=== PATIENT | male | born 1950 | race Two or more races ===

== ENCOUNTER 2024-07-21 09:31 | Inpatient (IN) | payer MEDICARE, MEDICAID, SELFPAY ==
[2024-07-21] VITALS (11 sets, daily range): BP systolic 137–175; BP diastolic 67–103; PULSE 64–106; RESP 14–31; TEMP 36.6–37.6; O2SAT 92–99; BMI 26.8
--- NOTE | 2024-07-21 09:51 | XR_ITS ---
Examination: PA lateral chest 2 views Technique: Upright PA lateral chest 2 views Exam date and time: July 21, 2024 10:17 AM Comparison June 27, 2017 Indications: Coughing beginning 3 days ago. Findings: Mild to moderate hyperexpansion No lobar pneumonia Accentuation basilar bronchovascular markings Moderate osteopenia Impression: COPD Basilar bronchitis pattern No lobar pneumonia
--- NOTE | 2024-07-21 09:51 | PD.EDRME ---
Rapid Medical Screening Exam RME Arrival date/time: 07/21/24 09:31 74-year-old male presents to the emergency department today with complaint of a 2-week history of weakness, cough, congestion, body aches, decreased urination Chief Complaint: Urogenital-Male Vital signs: Vital Signs Temperature 99.7 F 07/21/24 09:40 Pulse Rate 64 07/21/24 09:40 Respiratory Rate 18 07/21/24 09:40 Blood Pressure 137/81 H 07/21/24 09:40 Pulse Oximetry (%) 97 07/21/24 09:40 Oxygen Delivery Method Room Air 07/21/24 09:40
[2024-07-21 10:43] LABS: Lactate (Lactic Acid) 0.9 mMol/L (0.4-2.0)
[2024-07-21 10:56] LABS: Basophils # (Auto) 0.1 Thou/mm3 (0.0-0.2); Basophils % (Auto) 1 % (0-2.5); Eosinophils # (Auto) 0.1 Thou/mm3 (0.0-0.5); Eosinophils % (Auto) 1 % (0-10); Hematocrit 35.6 % (41.0-53.0); Hemoglobin 12.1 g/dL (13.5-16.0); Immature Granulocytes % (Auto) 1 % (0-0); Lymphocytes # (Auto) 1.3 Thou/mm3 (1.0-4.8); Lymphocytes % (Auto) 10 % (10-50); Mean Corpuscular Hemoglobin 25.6 pg (25.0-35.0); Mean Corpuscular Volume 75 fL (80-100); Monocytes # (Auto) 1.4 Thou/mm3 (0.0-0.8); Monocytes % (Auto) 12 % (0-12); Neutrophils # (Auto) 9.3 Thou/mm3 (1.8-7.7); Neutrophils % (Auto) 76 % (37-80); Nucleated Red Blood Cell % 0 /100 WBC (0); Platelet Count 300 Thou/mm3 (140-440); Red Blood Count 4.73 Miln/mm3 (4.50-5.90); White Blood Count 12.2 Thou/mm3 (3.8-10.6)
[2024-07-21 11:10] LABS: Alanine Aminotransferase 47 U/L (10-49); Albumin, Serum 4.2 gm/dL (3.4-4.8); Albumin/Globulin Ratio 1.5 (1.2-2.2); Alkaline Phosphatase 60 U/L (46-116); Anion Gap 5 (7-16); Aspartate Amino Transferase 37 U/L (0-34); BUN/Creatinine Ratio 11 Ratio (12-20); Blood Urea Nitrogen 11 mg/dL (9-23); Calcium 8.9 mg/dL (8.3-10.6); Calcium (Corrected) 8.9 mg/dL (8.5-10.1); Carbon Dioxide 25.8 mMol/L (20.0-31.0); Chloride 90 mMol/L (98-107); Estimated Creatinine Clearance 60.6 mL/min (>60); Globulin 2.8 gm/dL (2.3-3.5); Glucose 128 mg/dL (74-106); Osmolality,Calculated 245 (275-295); Potassium 4.6 mMol/L (3.4-5.1); Procalcitonin 0.12 ng/ml (0.0-0.49); Sodium 121 mMol/L (136-145); Troponin I < 0.020 ng/mL (0.0-0.045); eGFR > 60 See Note
[2024-07-21 11:10] LABS: Collection Type, Urine Clean Catch; Squamous Epithelial Cell,Urine 0 /hpf (0-5)
--- NOTE | 2024-07-21 11:20 | PD.EDURI ---
Upper Respiratory Inf. RME/HPI General Chief Complaint: Urogenital-Male Stated Complaint: cough, sob, trouble urinating x 2weeks Time Seen by Provider: 07/21/24 10:51 Arrival date/time: 07/21/24 09:31 RME / HPI RME / HPI Narrative: 07/21/24 09:31 74-year-old male presents to the emergency department today with complaint of a 2-week history of weakness, cough, congestion, body aches, decreased urination DR. NEGRO MAIN ED EVALUATION: 74 year old male with past medical history significant for asthma presents to the Emergency Department with complaints of a productive cough, congestion, shortness of breath, wheezing, and chest pain from coughing. Symptoms are moderate. Patient denies any fevers, chills, abdominal pain, or any other symptoms at this time. 1633: Patient states he does have a little dysuria. Denies any nausea. Related Data Home Medications ?Medication ?Instructions ?Recorded ?Confirmed benazepril 10 mg tablet 10 mg PO DAILY High Blood Pressure 07/27/22 04/21/23 metformin 1,000 mg tablet,extended 1,000 mg PO QDAY 07/27/22 04/21/23 release 24hr (osmotic) omeprazole 40 mg capsule,delayed 40 mg PO QDAY 07/27/22 04/21/23 release budesonide-formoterol HFA 160 1 puff inhalation BID 04/21/23 04/21/23 mcg-4.5 mcg/actuation aerosol inhaler (Symbicort) Previous Rx's ?Medication ?Instructions ?Recorded acetaminophen 500 mg tablet 500 mg PO Q6HR PRN PAIN #30 tabs 06/27/17 (Tylenol Extra Strength) Allergies Allergy/AdvReac Type Severity Reaction Status Date / Time No Known Allergies Allergy Verified 04/21/23 11:03 Review of Systems Review of Systems Systems Reviewed: All systems reviewed, normal except as documented Narrative Review of Systems: GEN: No fever, no chills, no weight loss EYES: No discharge, no visual changes, no pain HEENT: No ear pain, no congestion, no sore throat PULM: + shortness of breath and wheezing, + productive cough, + congestion CV: + chest pain, no dyspnea on exertion, no palpitations GI: No nausea, no vomiting, no diarrhea, no pain, no constipation : No frequency, no urgency and no dysuria MUSC/SKEL: No joint pain, no back pain SKIN: No rash PSYCH: No hallucinations, no depression HEME/LYMPH: No easy bleeding or bruising tendencies NEURO: No weakness, no headache Past Medical History Past Medical History NEUROLOGIC: Negative Neurological Disorders or Seizures CARDIAC: Positive Cardiac Disorders, Hypertension and Varicose Veins; Negative Congestive Heart Failure RESPIRATORY: Positive Asthma, Bronchitis and Pneumonia; Negative Chronic Obstructive Pulmonary Disease (COPD) GASTROINTESTINAL: Positive Gastrointestinal Disorders, Gastroesophageal Reflux Disease and Obesity GENITOURINARY: Negative Genitourinary Disorders or Renal Disease MUSCULOSKELETAL: Positive Fractures (post fall left ribs); Negative Musculoskeletal Disorders ENT: Positive Cataracts (cari) ENDOCRINE: Positive Endocrine Disorders and Diabetes Mellitus Type 2; Negative Diabetes Mellitus Type 1 HEMATOLOGIC: Negative Blood Disorders PSYCHO/SOCIAL: Positive Depression (no meds) and Anxiety OTHER HISTORY: Positive Hospitalization (asthma), Chicken Pox, Measles and Mumps; Negative Autoimmune Disease, Shingles, Blood Transfusions, Blood Transfusion Reaction, Anesthesia Reactions, Organ Transplant, MRSA or Cancer Family History FAMILY HISTORY: Positive Family Cardiac Disorders and Family Surgery; Negative Family Psychiatric Problems, Family Respiratory Disorders, Family Gastrointestinal Problems, Family Cancer or Family Anesthesia Reaction Surgical History SURGICAL: Positive Abdominal Surgery; Negative Cardiac Surgery, Endocrine Surgery, Ear Surgery, Nephrectomy, Joint Replacement, Neurologic Surgery, Mastectomy or Organ Transplant Social History SMOKING STATUS: Former smoker ED Exam Narrative Physical exam: Physical Exam: General: The vital signs were reviewed. Congested cough the patient is non-toxic, in no apparent distress and appears healthy with a patent airway, no respiratory distress and has no apparent circulatory problems. Head & Scalp: Normocephalic, atraumatic. Face: Appears normal and is without lesions, deformity. Ears: Left external pinna appears normal. Right external pinna appears normal. Eyes: The sclera is anicteric. No obvious photophobia. The Left and Right Orbit/Lid/Conjunctiva appears normal without swelling, discoloration or injection. Nose: The nose is without deformity, discharge or tenderness; Throat: Appears normal. The mucous membranes are pink and moist without exudates, redness or mass seen. The tongue appears normal. Neck: The neck is supple and no apparent mass or adenopathy. Chest: The chest wall is normal in size and symmetry and has no chest wall tenderness or crepitus. The patient displays normal ventilator effort without retractions, accessory muscle use and has diffuse wheezes in all lung comer. Cardiovascular: Regular rate and rhythm; No murmurs, rubs, or gallops; Gastrointestinal: The abdomen appears normal. No obvious hernias or mass. The abdomen is soft and benign, non-distended, with no pain, no guarding and no rebound tenderness. Bowel sounds are present and normal sounding. No CVA tenderness. Genitourinary: Back/Spine: Normal inspection Extremities/Musculoskeletal/lymphatic: The bilateral upper and lower extremities are warm. There is no evidence of arterial insufficiency. There is no evidence of venous insufficiency/edema. The patient spontaneously moves bilateral upper and lower extremities with no pain and no limitation of movement. There is no apparent, injury or trauma. Skin: The skin is warm, dry and intact. No rashes. No petechia. No purpura. No abnormal bruising. The color is appropriate with no cyanosis. Mental status/Psychiatric: Mental status is appropriate for age. The patient has no apparent delusions, visual hallucinations, no apparent audible hallucinations. The patient has no apparent suicidal thoughts/ideation and no apparent homicidal thoughts/ideation. Neurological: The patient is awake, alert, interactive, cordial, cooperative and is oriented to name and situation. The patient follows commands and answers historical question with no impairment. There is no visual disturbance apparent. The pupils are equal and reactive bilaterally with normal eye movements and no diplopia The bilateral upper and lower extremities have normal strength, normal range of motion and normal functioning. The gait, station and balance appear to be baseline with no acute change Course Quality Measures none Orders Category Date Time Status Bedside COVID-19 Antigen Test NOW Care 07/21/24 09:51 Active Bedside Influenza A&B Antigen Test NOW Care 07/21/24 09:51 Completed EKG (ED ONLY) *Do not use* NOW Care 07/21/24 09:51 Completed EKG (ED Only) Stat Exams 07/21/24 09:51 Ordered XR chest 2V Stat Exams 07/21/24 09:51 Completed Blood Culture (Lab) Stat Lab 07/21/24 10:29 Received CBC Stat Lab 07/21/24 10:34 Completed Comprehensive Metabolic Panel Stat Lab 07/21/24 10:34 Completed Lactate (Lactic Acid) Stat Lab 07/21/24 10:34 Completed Osmolality, Serum* Stat Lab 07/21/24 11:25 Ordered Osmolality, Urine* Stat Lab 07/21/24 11:25 Ordered Procalcitonin Stat Lab 07/21/24 10:34 Completed Sodium,Urine Random Stat Lab 07/21/24 11:06 Completed T4 (Thyroxine) Stat Lab 07/21/24 10:55 Completed Thyroid Stimulating Hormone Stat Lab 07/21/24 10:55 Completed Troponin I Stat Lab 07/21/24 10:34 Completed Urinalysis Stat Lab 07/21/24 11:06 Completed Urine Culture Stat Lab 07/21/24 11:06 Received ALBUTEROL RT 0.5ml [Proventil Rt 0.5ml] Med 07/21/24 11:20 Discontinued 10 mg INH X1 ONE Ipratropium Tyler Rt Naomi [Atrovent Rt Naomi] Med 07/21/24 11:20 Discontinued 1 mg INH X1 ONE MethylPREDNISolone.* [SoluMEDROL Inj] Med 07/21/24 11:20 Discontinued 125 mg IVP X1 ONE Sodium Chloride Rt Naomi 0.9% [NS Rt Naomi 0.9%] Med 07/21/24 11:20 Active 3 ml INH PRN PRN Reevaluation(s) Reevaluation #1: Patient states he does have a little dysuria. Denies any nausea. Time: 16:33 Vital Signs Vital signs: Vital Signs Temperature 99.7 F 07/21/24 09:40 Pulse Rate 64 07/21/24 09:40 Respiratory Rate 18 07/21/24 09:40 Blood Pressure 137/81 H 07/21/24 09:40 Pulse Oximetry (%) 97 07/21/24 09:40 Oxygen Delivery Method Room Air 07/21/24 09:40 Upper Respiratory Infection MDM Narrative MDM Narrative:: Patient presents with shortness of breath worse in the last 2 weeks with cough and congestion starting 2 weeks ago probably some viral illness and now has wheezing in all lung comer and will initiate continuous neb treatments. He has had asthma problem in the past requiring nebulizer treatments chest x-ray as read by myself has no obvious pneumonia effusion normal heart size. Diaphragms are flattened on the lateral view. Laboratory studies show a white count of 12.2 hemoglobin of 12.1 sodium is low at 121 etiology of this is unclear. Chloride 90 potassium 4.6 CO2 is 25.8. BUN 11 creatinine 1.0 glucose slightly elevated 128. AST 37 ALT 47. Procalcitonin is negative. UA is pending at this time. I will add additional labs to workup the hyponatremia. After breathing treatment patient's lungs are much improved patient sodium is 121 he is wobbly and he also has a obvious significant UTI. So organ to give him some fluids given some Rocephin and hospitalist was called they will come down and will admit the patient. When back in the room discussed this with the patient and they are okay with being admitted hospitalist team arrived and was taking history and informing that patient drinks significant alcohol daily which may be contributing to his hyponatremia ILexie, am scribing for and in the presence of Dr. Negro. Patient data External records reviewed:: [facility] previous records (Reviewed Opthalmology note by Dr. Gamble, dated 04/24/23.) Clinical information provided by:: patient and spouse Social determinants that could affect healthcare access:: none Patient has the following chronic illnesses:: Asthma How is presenting disease/condition affected by chronic disease/condition?: exacerbated by Evaluation data The following diagnostics were reviewed and interpreted by me:: lab results, radiology exam(s) and EKG tracing(s) (EKG#1: EKG at 1001 hours. Interpreted by me: sinus tachycardia, rate 100, no STEMI) Lab and/or radiology exams considered but not ordered:: none Interpretation Summary: See above under MDM narrative. RADIOLOGY Procedure(s): XR chest 2V Accession Number(s): [id number] cc: Aleah Hester; Shaka (CHEMICALS FERMENTATION OPERATOR),Marquez LOPEZ; Mathew Coley MD~ Examination: PA lateral chest 2 views Technique: Upright PA lateral chest 2 views Exam date and time: July 21, 2024 10:17 AM Comparison June 27, 2017 Indications: Coughing beginning 3 days ago. Findings: Mild to moderate hyperexpansion No lobar pneumonia Accentuation basilar bronchovascular markings Moderate osteopenia Impression: COPD Basilar bronchitis pattern No lobar pneumonia Dictated By: Mathew Coley MD Medications / Prescriptions Medications or Prescriptions considered but not ordered:: none Medication administrations:: Medication Administration History Ceftriaxone Sodium/Dextrose (Rocephin/D5w 1gm Iv Premix) 50 mls @ 100 mls/hr IV X1 ONE Stop: 07/21/24 17:03 Sodium Chloride (Ns) 1,000 mls @ 999 mls/hr IV .Q1H1M ONE Stop: 07/21/24 17:35 Sodium Chloride (Sodium Chloride Rt Naomi 0.9% 3 Ml Nebu) 3 ml INH PRN PRN PRN Reason: SOLN Stop: 08/20/24 11:19 Discontinued Medications Albuterol (Albuterol Rt 2.5 Mg/0.5 Ml Nebu) 10 mg INH X1 ONE Stop: 07/21/24 11:21 Last Admin: 07/21/24 11:54 Dose: 10 mg Documented By: SHANNAN Ipratropium Tyler (Ipratropium Rt 0.5 Mg/ 2.5 Ml Nebu) 1 mg INH X1 ONE Stop: 07/21/24 11:21 Last Admin: 07/21/24 11:54 Dose: 1 mg Documented By: SHANNAN Methylprednisolone Sodium Succinate (Methylprednisolone Sod Succ 62.5 Mg/Ml 2ml Vial) 125 mg IVP X1 ONE Stop: 07/21/24 11:21 Last Admin: 07/21/24 11:44 Dose: 125 mg Documented By: SHANNAN(2) see above Consultations Consultation(s) initiated? (list below): No Diagnosis Upper Respiratory Differential Diagnosis: upper respiratory infection, viral infection, influenza and other (asthma exacerbation) Most likely diagnosis given after review of the tests above:: As noted below. Admission Indicated Admission indicated?: not indicated Admission Request Was there a request for admission?: No Disposition Plan Disposition Plan: Discharge Discharge Attestation Discharge Attestation: The patient and all family members were given an opportunity to ask questions and understood the discharge instructions. Discharge instructions specifically effects, indications for sooner follow up or return to the emergency department, and the expected course of current diagnosis. Patient condition: Stable Discharge Plan Plan Patient Disposition: Admit Acute Care w/in Hospital Disposition Comment: Hospitalist admit Prescriptions/Referrals Prescriptions/Med Rec: No Action acetaminophen [Tylenol Extra Strength] 500 MG tablet 500 mg PO Q6HR PRN (Reason: PAIN) Qty: 30 0RF Hold Instructions: Resume on 08/02/22. omeprazole 40 mg Capsule,Delayed Release(Dr/Ec) 40 mg PO QDAY benazepril 10 mg Tablet 10 mg PO DAILY metformin 1,000 mg Tablet Extended Release 24 Hr 1,000 mg PO QDAY budesonide-formoterol [Symbicort] 160-4.5 mcg/actuation Hfa Aerosol Inhaler 1 puff INHALATION BID Referrals: Aleah Hester PA-C [Primary Care Provider] - In 1 week Problem List Clinical Impression: Dyspnea, Acute hyponatremia, COPD exacerbation, Weakness, Alcohol abuse Patient/Caregiver Discharge Instructions Print Language: Kinyarwanda Stand Alone Forms: [employer] Award Info., Patient Portal Info Letter
[2024-07-21] MEDS: MethylPREDNISolone SOD SUCC 62.5 MG/ML 2ML VIAL 125 MG IVP (11:44)
[2024-07-21] MEDS: IPRATROPIUM RT 0.5 MG/ 2.5 ML NEBU 1 MG INH (11:54)
[2024-07-21] MEDS: ALBUTEROL RT 2.5 MG/0.5 ML NEBU 10 MG INH (11:54)
[2024-07-21 11:57] LABS: Bilirubin,Urine Negative (Negative); Blood,Urine Trace (Negative); Clarity,Urine Turbid (Clear/Hazy); Color,Urine Yellow (Lt Yel-Yel); Glucose, Urine Negative (Negative); Ketones,Urine 1+ (Negative); Leukocyte Esterase,Urine Positive (Negative); Nitrite,Urine Negative (Negative); Protein,Urine 1+ (Neg - Trace); RBC,Urine 19 /hpf (0-3); Specific Gravity,Urine 1.015 (1.001-1.035); Transitional Epi Cells,Urine 2 /hpf (0-5); WBC,Urine 538 /hpf (0-5)
--- NOTE | 2024-07-21 12:15 | PC.NURSE ---
Respiratory therapist at bedside administering breathing treatment.
[2024-07-21 12:28] LABS: T4 (Thyroxine) 7.9 mcg/dL (4.5-10.9)
[2024-07-21 12:29] LABS: Thyroid Stimulating Hormone 0.24 uIU/mL (0.55-4.78)
--- NOTE | 2024-07-21 12:35 | PC.NURSE ---
Patient presents to ED with c/o cough and SOB, weakness to lower extremities and burning pain with urination, slow to start and dribbling upon urination. Patient is alert and oriented, ambulatory but requires assistance due to weakness. Patient spouse is at bedside and assisting patient. Patient and spouse updated with plan of care, instructed utilization engineer light use.
[2024-07-21 15:26] LABS: Sodium,Urine Random 31.7 mMol/L (20.0-110.0)
[2024-07-21] MEDS: cefTRIAXone/D5w 1gm IV premix 50 ML IV (17:31)
[2024-07-21] MEDS: SODIUM CHLORIDE 0.9% 1000 ML 1,000 ML 999 ML IV (17:32)
--- NOTE | 2024-07-21 17:48 | ESHP_ITS ---
<Statement entered by Dylan Diaz MD - 07/21/24 17:52> This patient is a 74-year-old male with past medical history of alcohol use disorder drinks treatments of vodka every day, history of diabetes managing with diet, hypertension and asthma with history of smoking presented the ED with shortness of breath productive cough and received breathing treatments in the ED which improved his wheezing and cough. Patient was found to have dizziness on ambulation and was having resting tremors. On social history he reported that he drinks vodka every day. Patient's was also present at bedside. He also reported to have dysuria from last 2 weeks along with difficulty breathing. Labs were significant for hyponatremia sodium of 122 since 10 AM and urine analysis showed pyuria, leukocyte esterase positive. Patient is admitted for symptomatic hyponatremia most likely due to beer potomania, alcohol use disorder and UTI. Will start with CIWA protocol and if he becomes severely agitated and withdrawing night team can add Librium. Will start with Rocephin for UTI. Currently awaiting sodium levels if declining will start with hypertonic saline at 35 cc/h and fluid restrict him. Strict ANUPAM's and started sliding scale for type 2 diabetes most likely. Refer to social science instructor for alcohol cessation. Daily labs. Med reconciliation pending. All labs and orders were reviewed. I saw and examined the patient, and I agree with current management stated by Dr Juana MD,PGY1. Plan of care was discussed with the attending physician and resident physician. Disclaimer: Despite multiple revisions, due to the dictation software being used, the document bellow may not be free of grammatical errors including phonetic/typographic errors. However, this does not deter from our commitment to providing health care in the patient's best interest in mind. Dr. Joe MD, PGY 2 Documentation for date of: 07/21/24 HPI History of Present Illness Chief complaint: SOB, weakness History of present illness: 74 y/o M with PMHx significant for asthma, diabetes, hypertension presents to the ED from home with chief complaint of progressive shortness of breath and generalized weakness x 2 weeks. Patient was in his usual state of health until 2 weeks ago when he developed progressive shortness of breath not relieved with at home inhaler, generalized weakness, dysuria. Patient denies fevers, chills, chest pain, nausea, vomiting. Patient has no known sick contacts. ED COURSE: Lab significant for: WBC 12.2, sodium 121, osmolality 245, lactic acid 0.9, pro 0.12. UA indicating infection: Plus leukocyte esterase, 19 RBCs, 538 WBCs. Urine sodium 31.7. Imaging significant for: Chest x-ray unremarkable. Patient received 125 mg IV Solu-Medrol, 1 breathing treatment, Rocephin, 1 L bolus normal saline in the ED. At time of exam patient denied any shortness of breath. Patient afebrile, satting well on room air. PMH: HTN, DM, asthma PSH: Umbilical hernia repair SH: Used to smoke 1-2 cigarettes daily, quit 15 years ago. Denies illicit drug use. Endorses drinking 3 pints of vodka daily, last drink last night. Allergies:?NKDA Medications: Omeprazole, metformin, unknown hypertension medication Review of Systems Review of Systems Systems Reviewed: All systems reviewed, normal except as documented Past Medical History Past Medical History Comments PMH COMMENT: PMH: HTN, DM, asthma PSH: Umbilical hernia repair SH: Used to smoke 1-2 cigarettes daily, quit 15 years ago. Denies illicit drug use. Endorses drinking 3 pints of vodka daily, last drink last night. Allergies:?NKDA Medications: Omeprazole, metformin, unknown hypertension medication Exam Vital Signs Temp Pulse Resp BP Pulse Ox O2 Del Method 99.3 F 84 19 155/81 H 98 Room Air 07/21/24 16:13 07/21/24 16:13 07/21/24 16:13 07/21/24 16:13 07/21/24 16:13 07/21/24 16:13 Narrative Exam PE: Gen: Well-developed and well-nourished. HEENT: NCAT, PERRLA, EOMI, MMM, anicteric conjunctivae. CVS: normal S1 and S2. RRR. No M/R/G. Resp: Diffuse mild wheezing in all lung comer. Abd: soft, non-tender, non-distended. MSK: Good ROM in BUE & BLE. No edema or rash. Neuro: CN II-XII grossly intact. Strength 5/5 in BUE & BLE. Alert and oriented x3. Tremors. Psych: appropriate mood and affect. Results: Labs 07/21/24 10:34 07/21/24 17:49 Labs: Short CBC 07/21/24 Range/Units 10:34 WBC 12.2 H (3.8-10.6) Thou/mm3 Hgb 12.1 L (13.5-16.0) g/dL Hct 35.6 L (41.0-53.0) % Plt Count 300 (140-440) Thou/mm3 BMP 07/21/24 10:34 Sodium 121 L Potassium 4.6 Chloride 90 L Carbon Dioxide 25.8 BUN 11 Creatinine 1.0 Glucose 128 H Calcium 8.9 Cardiac Enzymes 07/21/24 Range/Units 10:34 Troponin I < 0.020 (0.0-0.045) ng/mL Liver Function 07/21/24 Range/Units 10:34 Total Bilirubin 1.0 (0.3-1.2) mg/dL AST 37 H (0-34) U/L ALT 47 (10-49) U/L Alkaline Phosphatase 60 (46-116) U/L Albumin 4.2 (3.4-4.8) gm/dL Urine 07/21/24 Range/Units 11:06 Urine Color Yellow (Lt Yel-Yel) Urine Clarity Turbid A (Clear/Hazy) Urine pH 7.0 (5.0-7.0) Ur Specific [place] 1.015 (1.001-1.035) Urine Protein 1+ A (Neg - Trace) Urine Glucose (UA) Negative (Negative) Quality Measures Quality Measures VTE prophylaxis Advance care planning discussed with:: patient and spouse Medications Home Medications and Allergies Home Medications ?Medication ?Instructions ?Recorded ?Confirmed ?Type benazepril 10 mg tablet 10 mg PO DAILY High Blood Pressure 07/27/22 04/21/23 History metformin 1,000 mg tablet,extended 1,000 mg PO QDAY 07/27/22 04/21/23 History release 24hr (osmotic) omeprazole 40 mg capsule,delayed 40 mg PO QDAY 07/27/22 04/21/23 History release budesonide-formoterol HFA 160 1 puff inhalation BID 04/21/23 04/21/23 History mcg-4.5 mcg/actuation aerosol inhaler (Symbicort) Allergies Allergy/AdvReac Type Severity Reaction Status Date / Time No Known Allergies Allergy Verified 10/27/23 11:03 Visit Medications Acetaminophen (Acetaminophen 325 Mg Tablet) 650 mg PO Q6H PRN PRN Reason: Fever >100.4 or pain Stop: 08/20/24 17:23 Albuterol/Ipratropium (Albuterol/Ipratropium (Duoneb) Rt Naomi 3 Ml Nebu) 3 ml INH Q2HR PRN PRN Reason: SHORTNESS OF BREATH OR WHEEZE Stop: 08/20/24 17:23 Dextrose (Dextrose 50%-Water Inj 50 Ml Syringe) 25 ml IV Q15MIN PRN PRN Reason: BG 50-70 responsive npo pt Stop: 08/20/24 17:44 Dextrose (Dextrose 50%-Water Inj 50 Ml Syringe) 50 ml IV Q15MIN PRN PRN Reason: BG <50 OR BG <70 & pt unresponsive Stop: 08/20/24 17:44 Enoxaparin Sodium (Enoxaparin Sod Inj 40 Mg/0.4 Ml Syringe) 40 mg SC QDAY [facility] Stop: 08/05/24 08:59 Folic Acid (Folic Acid 1 Mg Tablet) 1 mg PO BID [facility] Stop: 07/26/24 20:59 Glucagon (Glucagon Inj 1 Mg Vial) 1 mg IM Q15MIN PRN PRN Reason: BG <70, and no IV access Ceftriaxone Sodium/Dextrose (Rocephin/D5w 1gm Iv Premix) 50 mls @ 100 mls/hr IV QDAY@1400 [facility] Stop: 07/29/24 08:59 Insulin Human Lispro (Insulin Lispro (Admelog) 1 Unit/0.01 Ml Unit) 0 unit SC [facility]; Protocol Stop: 08/21/24 07:29 Lorazepam (Lorazepam 0.5 Mg Tablet) 0.5 mg PO Q4HR PRN PRN Reason: CIWA Score 2-6 Stop: 07/26/24 17:23 Lorazepam (Lorazepam 0.5 Mg Tablet) 1 mg PO Q4HR PRN PRN Reason: CIWA SCORE 7-11 Stop: 07/26/24 17:23 Lorazepam (Lorazepam 0.5 Mg Tablet) 2 mg PO Q4HR PRN PRN Reason: CIWA SCORE 12-15 Stop: 07/26/24 17:23 Lorazepam (Lorazepam 2 Mg/Ml Vial) 1 mg IV X1 PRN PRN Reason: Breakthrough Agitation Magnesium Hydroxide (Milk Of Magnesia Susp 30 Ml Udc) 30 ml PO QDAY PRN; Protocol PRN Reason: CONSTIPATION Stop: 08/20/24 17:23 Ondansetron HCl (Ondansetron Inj 2 Mg/Ml Inj 2 Ml) 4 mg IV Q6H PRN; Protocol PRN Reason: NAUSEA OR VOMITING Stop: 08/20/24 17:23 Sennosides (Senna Tablet) 1 tab PO QDAY PRN; Protocol PRN Reason: constipation Stop: 08/20/24 17:23 Sodium Chloride (Sodium Chloride Rt Naomi 0.9% 3 Ml Nebu) 3 ml INH PRN PRN PRN Reason: SOLN Stop: 08/20/24 11:19 Thiamine HCl (Thiamine 100 Mg Tablet) 100 mg PO BID [facility] Stop: 07/26/24 20:59 Discontinued Medications Albuterol (Albuterol Rt 2.5 Mg/0.5 Ml Nebu) 10 mg INH X1 ONE Stop: 07/21/24 11:21 Last Admin: 07/21/24 11:54 Dose: 10 mg Ceftriaxone Sodium/Dextrose (Rocephin/D5w 1gm Iv Premix) 50 mls @ 100 mls/hr IV X1 ONE Stop: 07/21/24 17:03 Last Admin: 07/21/24 17:31 Dose: 100 mls/hr Sodium Chloride (Ns) 1,000 mls @ 999 mls/hr IV .Q1H1M ONE Stop: 07/21/24 17:35 Last Admin: 07/21/24 17:32 Dose: 999 mls/hr Ipratropium [place] (Ipratropium Rt 0.5 Mg/ 2.5 Ml Nebu) 1 mg INH X1 ONE Stop: 07/21/24 11:21 Last Admin: 07/21/24 11:54 Dose: 1 mg Methylprednisolone Sodium Succinate (Methylprednisolone Sod Succ 62.5 Mg/Ml 2ml Vial) 125 mg IVP X1 ONE Stop: 07/21/24 11:21 Last Admin: 07/21/24 11:44 Dose: 125 mg Assessment & Plan Plan 74 y/o M with PMHx significant for asthma, diabetes, hypertension presents to the ED from home with chief complaint of progressive shortness of breath and generalized weakness x 2 weeks, admitted for symptomatic hyponatremia and UTI. #Hyponatremia, symptomatic The patient was found to be hyponatremic at 121 in the ED. Likely due to beer Potomania, patient endorses drinking 3 pints of vodka daily with poor food intake. Urine appears dilute. Urine sodium 31.7. Patient endorses weakness, dizziness on standing. Patient received 1 L bolus normal saline in the ED. -Telemetry -Sodium checks every 4 hours -Nephrology consulted, appreciate recommendations -Fluid restriction 1500 cc -Hypertonic saline 35 mL/h x 0.5 L, will hold if sodium is equal to or greater than 125 -Orthostatic vitals pending -Strict I's and O's #Alcohol withdrawal Patient reports drinking 3 pints of vodka daily. Last drink was night before admission. Entire exam patient has tremors. Patient endorses previous episodes of tremors and hallucinations when he stopped drinking, denies seizures. -Telemetry -[facility] protocol -Consider Librium #UTI, symptomatic Patient reports dysuria x 2 weeks. Patient denies fevers, chills during this time. UA showed positive leukocyte esterase, 538 WBCs. Patient leukocytosis 12.2. Patient afebrile, nonseptic. -Urine cultures pending -Rocephin 1 g IV daily (started 07/21) #Asthma exacerbation, improved Patient presented with chief complaint of shortness of breath, progressive x 2 weeks, not relieved without home inhaler. In ED patient received 125 mg IV Solu-Medrol, 1 breathing treatment. Patient reports significant improvement in symptoms, at time of exam patient satting well on room air, mild diffuse wheezings. At time of exam patient denies shortness of breath. Given patient's good clinical presentation at time of exam, declined to administer continued steroids. -DuoNebs as needed -Monitor O2 saturations #DM, [id number] Patient has history of diabetes, takes metformin outpatient. A1c 6.2% as of 01/11/2024. -Carb consistent diet -ISS -A1c pending #HTN, patient history Patient has history as stated. Takes a medication but unsure which one. Med rec's pending. -Consider resuming home med pending med rec's DVT prophylaxis: Lovenox GI prophylaxis: None Diet: Carb consistent, fluid restriction 1500 cc Lines: Peripheral IV Code status: Full code Plan of care discussed with senior resident Dr. Diaz PGY?[address] Grant. Gustavo Arias MD PGY-1 Attending Provider Attestation/Addendum I have examined the patient, reviewed labs and imaging findings, discussed the case with the resident(s), and reviewed entered orders. I agree with the plan of care as outlined in this note, with these additional summaries/recommendations: Patient is a 74-year-old male with a medical history of primary hypertension, GERD, diabetes mellitus type 2, COPD/asthma, normocytic anemia, and restless leg syndrome who presents to [facility] emergency department on 07/21/2024 with chief complaints of weakness, urinary symptoms, and generalized bodyaches. In the emergency department urinalysis is indicative of urinary tract infection and patient was found to have severe hyponatremia and thus hospitalist team was consulted for continuation of care. # Hypotonic hyponatremia Presented with sodium 121 and serum osmolality 245, urine sodium 31.7, TSH 0.24 Volume status: Euvolemic DDx: Medication induced versus extrarenal losses versus SIADH versus low solute intake versus CHF Workup: Obtain urine osmolality, trend sodium every 4-6 hours Plan: Sodium 121 at 1030 this morning. We will order stat repeat sodium. If sodium increases we will continue with just fluid restriction and close trending of sodium. If sodium stayed at 121 or below we will start hypertonic saline with close monitoring. #?Urinary tract infection Does endorse some lower urinary tract symptoms Urinalysis: Leukocyte esterase positive, RBC 19, WBC 538, bacteria none Urine and blood cultures ordered Plan: Start IV Rocephin. Follow-up culture results and repeat hematology panel in AM. #Alcohol withdrawal Plan: Drinks 3 points of hard liquor a day. Last drink 07/20. Start CIWA protocol #COPD Plan: Breathing treatments as needed # Diabetes mellitus type 2 Well controlled. Last A1C 01/11/24 6.2% Plan: Start sensitive insulin sliding scale # Primary hypertension Plan: We will resume home antihypertensives as tolerated. Dr. Grant
[2024-07-21 18:24] LABS: Sodium 122 mMol/L (136-145)
--- NOTE | 2024-07-21 19:27 | PC.NURSE ---
clarified 3% hypertonic order as sodium level sits at 122, per MD Cruz to start IVF.
[2024-07-21] MEDS: SODIUM CHLORIDE 3%(Hypertonic) 500 ML in PRE-MIXED 1 BAG 30 ML IV (19:47)
[2024-07-21] MEDS: LORazepam 0.5 MG TABLET 1 MG PO (19:53)
[2024-07-21] MEDS: FOLIC ACID 1 MG TABLET PO (20:22)
[2024-07-21] MEDS: THIAMINE 100 MG TABLET PO (20:22)
[2024-07-21 22:05] LABS: Sodium 125 mMol/L (136-145)
[2024-07-21] MEDS: LORazepam 0.5 MG TABLET 2 MG PO (23:05)
[2024-07-22] VITALS (14 sets, daily range): BP systolic 124–175; BP diastolic 72–98; PULSE 74–110; RESP 13–24; TEMP 36.4–37.4; O2SAT 95–99; BMI 28.5; BMI 28.6
--- NOTE | 2024-07-22 00:47 | PC.NURSE ---
Carmelina, daughter, contacted about admission questions. daughter states patient has history of drug abuse using methamphetamines on and off.
[2024-07-22 01:51] LABS: Sodium 127 mMol/L (136-145)
[2024-07-22] MEDS: DEXTROSE 5%-0.45% NS 1,000 ML 75 ML IV (02:23)
[2024-07-22 06:26] LABS: Basophils % (Auto) 0 % (0-2.5); Eosinophils % (Auto) 0 % (0-10); Hematocrit 36.8 % (41.0-53.0); Hemoglobin 12.1 g/dL (13.5-16.0); Immature Granulocytes % (Auto) 1 % (0-0); Immature Granulocytes Auto 0.07 Thou/mm3 (0.00-0.00); Lymphocytes # (Auto) 0.8 Thou/mm3 (1.0-4.8); Lymphocytes % (Auto) 8 % (10-50); Mean Corpuscular HGB Conc 32.9 g/dl (31.0-37.0); Mean Corpuscular Hemoglobin 25.3 pg (25.0-35.0); Mean Corpuscular Volume 77 fL (80-100); Monocytes # (Auto) 0.3 Thou/mm3 (0.0-0.8); Monocytes % (Auto) 3 % (0-12); Neutrophils # (Auto) 8.4 Thou/mm3 (1.8-7.7); Neutrophils % (Auto) 88 % (37-80); Nucleated Red Blood Cell % 0 /100 WBC (0); Platelet Count 305 Thou/mm3 (140-440); RDW Standard Deviation 41.7 fL (35.1-43.9); Red Blood Count 4.78 Miln/mm3 (4.50-5.90); White Blood Count 9.5 Thou/mm3 (3.8-10.6)
[2024-07-22 06:57] LABS: Alanine Aminotransferase 45 U/L (10-49); Albumin, Serum 4.1 gm/dL (3.4-4.8); Albumin/Globulin Ratio 1.2 (1.2-2.2); Alkaline Phosphatase 61 U/L (46-116); Anion Gap 9 (7-16); Aspartate Amino Transferase 32 U/L (0-34); BUN/Creatinine Ratio 15 Ratio (12-20); Bilirubin,Total 0.5 mg/dL (0.3-1.2); Blood Urea Nitrogen 12 mg/dL (9-23); Calcium 8.9 mg/dL (8.3-10.6); Calcium (Corrected) 8.9 mg/dL (8.5-10.1); Carbon Dioxide 23.4 mMol/L (20.0-31.0); Chloride 94 mMol/L (98-107); Creatinine (Component) 0.8 mg/dL (0.6-1.3); Estimated Creatinine Clearance 83.3 mL/min (>60); Globulin 3.3 gm/dL (2.3-3.5); Glucose 165 mg/dL (74-106); Magnesium 1.8 mg/dL (1.6-2.6); Osmolality,Calculated 257 (275-295); Phosphorous 2.8 mg/dL (2.4-5.1); Potassium 3.8 mMol/L (3.4-5.1); Sodium 126 mMol/L (136-145); Total Protein 7.4 gm/dL (5.7-8.2); eGFR > 60 See Note
[2024-07-22 07:09] LABS: Glucose Estimated Average 140 mg/dL (80-131); Hemoglobin A1C 6.5 % Hgb (4.8-6.0)
[2024-07-22] MEDS: INSULIN LISPRO (AdmeLOG) 1 UNIT/0.01 ML UNIT SC ×2 (07:48→12:10)
[2024-07-22] MEDS: ENOXAPARIN SOD INJ 40 MG/0.4 ML SYRINGE SC (08:18)
[2024-07-22] MEDS: THIAMINE 100 MG TABLET PO ×2 (08:18→20:46)
[2024-07-22] MEDS: FOLIC ACID 1 MG TABLET PO ×2 (08:18→20:46)
[2024-07-22] MEDS: cefTRIAXone/D5w 1gm IV premix 50 ML IV ×2 (08:18→14:40)
[2024-07-22] MEDS: LORazepam 0.5 MG TABLET 1 MG PO ×3 (08:19→23:32)
--- NOTE | 2024-07-22 09:26 | PD.NEPHCONS ---
History of Present Illness Data of Consult Requesting Physician: Dmitriy Grant MD Primary Care Provider: Aleah Hester PA-C Consult Narrative Reason for consult: Hyponatremia History of present illness: Mr. Tapia is a 74-year-old gentleman with past medical history significant for diabetes, hypertension, asthma, alcoholism presented to the emergency department with shortness of breath weakness which is going on for the last 2 weeks. Patient also was having dysuria with no fever or chills. Patient apparently drinks significant amount of vodka on a daily basis. In the emergency department-lab significant for: WBC 12.2, sodium 121, osmolality 245, creatinine normal lactic acid 0.9, pro 0.12. UA indicating infection: Plus leukocyte esterase, 19 RBCs, 538 WBCs. Urine sodium 31.7. Chest x-ray normal Patient received 125 mg IV Solu-Medrol, 1 breathing treatment, Rocephin, 1 L bolus normal saline in the ED. patient was moved to telemetry due to his asymptomatic hyponatremia from dizziness weakness decided to start him on 3% hypertonic saline with close monitoring of the serum sodium. Overnight his sodium went up to 127. night team started the patient on D5W. This morning his sodium is 126. Having breakfast. More alert and awake although still a little confusion noted and tremors probably from alcoholism. CIWA protocol was initiated. cc:: cc: Dmitriy Grant MD Review of Systems Review of Systems Narrative Review of Systems: Limited as patient seems to be still slightly confused and having tremors-suspect from alcoholism. Past Medical History Past Medical History NEUROLOGIC: Negative Neurological Disorders or Seizures CARDIAC: Positive Cardiac Disorders, Hypertension and Varicose Veins; Negative Congestive Heart Failure RESPIRATORY: Positive Asthma, Bronchitis and Pneumonia; Negative Chronic Obstructive Pulmonary Disease (COPD) GASTROINTESTINAL: Positive Gastrointestinal Disorders, Gastroesophageal Reflux Disease and Obesity GENITOURINARY: Negative Genitourinary Disorders or Renal Disease MUSCULOSKELETAL: Positive Fractures; Negative Musculoskeletal Disorders ENT: Positive Cataracts ENDOCRINE: Positive Endocrine Disorders and Diabetes Mellitus Type 2; Negative Diabetes Mellitus Type 1 HEMATOLOGIC: Negative Blood Disorders PSYCHO/SOCIAL: Positive Depression and Anxiety OTHER HISTORY: Positive Hospitalization, Chicken Pox, Measles and Mumps; Negative Autoimmune Disease, Shingles, Blood Transfusions, Blood Transfusion Reaction, Anesthesia Reactions, Organ Transplant, MRSA or Cancer Family History FAMILY HISTORY: Positive Family Cardiac Disorders and Family Surgery; Negative Family Psychiatric Problems, Family Respiratory Disorders, Family Gastrointestinal Problems, Family Cancer or Family Anesthesia Reaction Surgical History SURGICAL: Positive Abdominal Surgery; Negative Cardiac Surgery, Endocrine Surgery, Ear Surgery, Nephrectomy, Joint Replacement, Neurologic Surgery, Mastectomy or Organ Transplant Social History SMOKING STATUS: Former smoker ALCOHOL LAST INTAKE: Days (ago) Past Medical History Comments PMH COMMENT: PMH: HTN, DM, asthma PSH: Umbilical hernia repair SH: Used to smoke 1-2 cigarettes daily, quit 15 years ago. Denies illicit drug use. Endorses drinking 3 pints of vodka daily, last drink last night. Allergies:?NKDA Medications: Omeprazole, metformin, unknown hypertension medication Meds Home Medications and Allergies Home Medications ?Medication ?Instructions ?Recorded ?Confirmed ?Type benazepril 10 mg tablet 10 mg PO DAILY High Blood Pressure 07/27/22 04/21/23 History metformin 1,000 mg tablet,extended 1,000 mg PO QDAY 07/27/22 04/21/23 History release 24hr (osmotic) omeprazole 40 mg capsule,delayed 40 mg PO QDAY 07/27/22 04/21/23 History release budesonide-formoterol HFA 160 1 puff inhalation BID 04/21/23 04/21/23 History mcg-4.5 mcg/actuation aerosol inhaler (Symbicort) Allergies Allergy/AdvReac Type Severity Reaction Status Date / Time No Known Allergies Allergy Verified 04/21/23 11:03 Exam Vital Signs Temp Pulse Resp BP Pulse Ox O2 Del Method 36.4 C 78 13 175/93 H 95 Room Air 07/22/24 04:00 07/22/24 06:13 07/22/24 06:13 07/22/24 04:00 07/22/24 06:13 07/22/24 04:00 Narrative Exam GENERAL APPEARANCE: Patient seems to be comfortable, adequately hydrated and nourished. HEENT: EOMI, PERRLA NECK: Neck supple, no JVD or bruit CARDIOVASCULAR: Heart regular, no murmurs LUNGS/CHEST: Few rhonchi noted bilaterally ABDOMEN: Soft, nontender, nondistended. No masses. Normal bowel sounds. EXTREMITIES: No edema, clubbing or cyanosis. SKIN: Skin exam normal without any rashes MUSCULOSKELETAL: in bed NEUROLOGICAL : seems to be mildly confused. Results Labs 07/22/24 04:33 07/22/24 13:46 Labs: Short CBC 07/21/24 07/22/24 Range/Units 10:34 04:33 WBC 12.2 H 9.5 (3.8-10.6) Thou/mm3 Hgb 12.1 L 12.1 L (13.5-16.0) g/dL Hct 35.6 L 36.8 L (41.0-53.0) % Plt Count 300 305 (140-440) Thou/mm3 BMP 07/21/24 07/21/24 07/21/24 10:34 17:49 21:32 Sodium 121 L 122 L 125 L Potassium 4.6 Chloride 90 L Carbon Dioxide 25.8 BUN 11 Creatinine 1.0 Glucose 128 H Calcium 8.9 07/22/24 07/22/24 01:34 04:33 Sodium 127 L 126 L Potassium 3.8 D Chloride 94 L Carbon Dioxide 23.4 BUN 12 Creatinine 0.8 Glucose 165 H Calcium 8.9 Cardiac Enzymes 07/21/24 Range/Units 10:34 Troponin I < 0.020 (0.0-0.045) ng/mL Liver Function 07/21/24 07/22/24 Range/Units 10:34 04:33 Total Bilirubin 1.0 0.5 D (0.3-1.2) mg/dL AST 37 H 32 (0-34) U/L ALT 47 45 (10-49) U/L Alkaline Phosphatase 60 61 (46-116) U/L Albumin 4.2 4.1 (3.4-4.8) gm/dL Urine 07/21/24 Range/Units 11:06 Urine Color Yellow (Lt Yel-Yel) Urine Clarity Turbid A (Clear/Hazy) Urine pH 7.0 (5.0-7.0) Ur Specific [place] 1.015 (1.001-1.035) Urine Protein 1+ A (Neg - Trace) Urine Glucose (UA) Negative (Negative) Assessment & Plan Assessment and plan (1) Acute hyponatremia: Status: Acute Assessment and plan: Symptomatic hyponatremia needing with 3% hypertonic saline. To avoid overcorrection patient was given D5W. Seems to be slowly improving. At this point I would stop the D5W and let it rise along with fluid restriction. Will monitor his serum sodium closely. (2) COPD exacerbation: Status: Acute Assessment and plan: Currently on antibiotics, breathing treatments (3) Alcohol abuse: Status: Acute Assessment and plan: Noted patient drinks vodka on a daily basis. Emphasized alcohol abstinence. (4) Weakness: Status: Acute Assessment and plan: Secondary to alcohol withdrawal/hyponatremia. Will monitor closely. (5) Diabetes: Status: Acute Assessment and plan: Accu-Cheks, sliding scale. Last A1c of 6.5. Additional Assessment & Plan Additional Plan: Thank you Dmitriy for allowing me to participate in the care of Mr. Tapia
--- NOTE | 2024-07-22 09:52 | PC.SS ---
Update: CIWA protocol in place. Pending urine/blood cultures. Patient is on room air.
[2024-07-22] MEDS: ALBUTEROL/IPRATROPIUM (Duoneb) RT SOL 3 ML NEBU INH ×2 (10:16→15:32)
--- NOTE | 2024-07-22 10:59 | PC.SS ---
[facility] conducted phone contact with the patient?s spouse, Kelsy Tapia ; to conduct initial assessment and discuss discharge planning. Patient currently in ICU, presented to the ED with shortness of breath, productive cough and received breathing treatments in the ED which improved his wheezing and cough. Patient currently on room air. [facility] utilized park interpreter services to assist with completion of assessment. Patient resides at home with spouse. Patient utilizes a walker to assist with ambulation. Patient does not utilize home oxygen. Patient possesses ability to complete ADL?s independently. Patient?s medical surrogate decision maker is spouse, Kelsy Tapia. Patient?s PCP is Edel Frost ALICIA. Patient does not possess specialty providers. Patient utilizes [facility] for medication services. Patient is diabetic, non-insulin dependent. Plan is for the patient to discharge home. Patient?s spouse will provide patient with transportation home. No discharge needs identified at current time. No further intervention required at this time, social work program coordinator will be available to address any further concerns. Next of Kin: Kelsy Tapia D/C Plan: Home
[2024-07-22 11:12] LABS: Sodium 129 mMol/L (136-145)
[2024-07-22] MEDS: amLODIPine BESYLATE 5 MG TABLET 10 MG PO (12:09)
--- NOTE | 2024-07-22 13:35 | ESPR_ITS ---
<Statement entered by Dylan Diaz MD - 07/22/24 14:23> Patient was seen and examined at the bedside. He was resting comfortably and had noticeable tremors. Overnight, patient received hypertonic saline and sodium improved to 127 quickly there for to avoid overcorrection night team placed D5W at 75 cc 1 bag and sodium was 126 this morning. Will continue with sodium checks every 4 hourly and follow nephrology recommendations. Continue IV Rocephin for UTI. Continue CIWA protocol for alcohol withdrawal. Started amlodipine for high blood pressure. All labs and orders were reviewed. I saw and examined the patient, and I agree with current management stated by Dr Juana MD,PGY1. Plan of care was discussed with the attending physician and resident physician. Disclaimer: Despite multiple revisions, due to the dictation software being used, the document bellow may not be free of grammatical errors including phonetic/typographic errors. However, this does not deter from our commitment to providing health care in the patient's best interest in mind. Dr. Joe MD, PGY 2 Documentation for date of: 07/22/24 Subjective Subjective Interval history: No overnight events. Patient seen and examined at bedside. Patient resting comfortably, noticeable tremors. Denies shortness of breath, chest pain, nausea, vomiting. Continue CIWA protocol. Continue antibiotics. Closely monitor sodium. Started amlodipine for BP control. Exam Vital Signs Temp Pulse Resp BP Pulse Ox O2 Del Method 98.2 F 97 14 129/77 97 Room Air 07/22/24 12:00 07/22/24 12:09 07/22/24 12:00 07/22/24 12:09 07/22/24 12:07/22/24 12:00 Narrative Exam PE: Gen: Well-developed and well-nourished. HEENT: NCAT, PERRLA, EOMI, MMM, anicteric conjunctivae. CVS: normal S1 and S2. RRR. No M/R/G. Resp: Diffuse mild wheezing in all lung comer. Abd: soft, non-tender, non-distended. MSK: Good ROM in BUE & BLE. No edema or rash. Neuro: CN II-XII grossly intact. Strength 5/5 in BUE & BLE. Alert and oriented x3. Tremors. Psych: appropriate mood and affect. Objective Labs 07/23/24 05:14 07/23/24 02:02 Labs: Laboratory Results - last 24 hr 07/21/24 07/21/24 07/21/24 11:06 17:49 21:32 WBC RBC Hgb Hct MCV MCH MCHC RDW Std Deviation Plt Count Neut % (Auto) Lymph % (Auto) [place] % (Auto) Eos % (Auto) Baso % (Auto) Neut # (Auto) Lymph # (Auto) [place] # (Auto) Eos # (Auto) Baso # (Auto) Immature Gran # (Auto) Absolute Nucleated RBC Immature Gran % Nucleated RBC % Sodium 122 L 125 L Potassium Chloride Carbon Dioxide Anion Gap BUN Creatinine Estim Creat Clear Calc eGFR BUN/Creatinine Ratio Glucose Estimated Ave Glu mg/dL Hemoglobin A1c Calculated Osmolality Calcium Corrected Calcium Phosphorus Magnesium Total Bilirubin AST ALT Alkaline Phosphatase Total Protein Albumin Globulin Albumin/Globulin Ratio Ur Random Sodium 31.7 07/22/24 07/22/24 07/22/24 01:34 04:33 10:35 WBC 9.5 RBC 4.78 Hgb 12.1 L Hct 36.8 L MCV 77 L MCH 25.3 MCHC 32.9 RDW Std Deviation 41.7 Plt Count 305 Neut % (Auto) 88 H Lymph % (Auto) 8 L [place] % (Auto) 3 Eos % (Auto) 0 Baso % (Auto) 0 Neut # (Auto) 8.4 H Lymph # (Auto) 0.8 L [place] # (Auto) 0.3 Eos # (Auto) 0.0 Baso # (Auto) 0.0 Immature Gran # (Auto) 0.07 H Absolute Nucleated RBC 0.00 Immature Gran % 1 H Nucleated RBC % 0 Sodium 127 L 126 L 129 L Potassium 3.8 D Chloride 94 L Carbon Dioxide 23.4 Anion Gap 9 BUN 12 Creatinine 0.8 Estim Creat Clear Calc 83.3 eGFR > 60 BUN/Creatinine Ratio [address] Glu mg/dL 140 H Hemoglobin A1c 6.5 H Calculated Osmolality 257 L Calcium 8.9 Corrected Calcium 8.9 Phosphorus 2.8 Magnesium 1.8 Total Bilirubin 0.5 D AST 32 ALT 45 Alkaline Phosphatase 61 Total Protein 7.4 Albumin 4.1 Globulin 3.3 Albumin/Globulin Ratio 1.2 Ur Random Sodium Quality Measures Quality Measures VTE prophylaxis Advance care planning discussed with:: patient Assessment & Plan Assessment Current Active Medications: Generic Name Dose Route Start Last Admin Trade Name Bennieq PRN Reason Stop Dose Admin Acetaminophen 650 mg 07/21/24 17:24 Acetaminophen 325 Mg Tablet PO 08/20/24 17:23 Q6H PRN Fever >100.4 or pain Albuterol/Ipratropium 3 ml 07/21/24 17:24 07/22/24 10:16 Albuterol/Ipratropium (Duoneb) Rt Naomi 3 Ml Nebu INH 08/20/24 17:23 3 ml Q2HR PRN Administration SHORTNESS OF BREATH OR WHEEZE Amlodipine Besylate 10 mg 07/22/24 11:15 07/22/24 12:09 Amlodipine Besylate 5 Mg Tablet PO 08/21/24 11:14 10 mg QDAY BJ Administration Dextrose 25 ml 07/21/24 17:45 Dextrose 50%-Water Inj 50 Ml Syringe IV 08/20/24 17:44 Q15MIN PRN BG 50-70 responsive npo pt Dextrose 50 ml 07/21/24 17:45 Dextrose 50%-Water Inj 50 Ml Syringe IV 08/20/24 17:44 Q15MIN PRN BG <50 OR BG <70 & pt unresponsive Enoxaparin Sodium 40 mg 07/22/24 09:00 07/22/24 08:18 Enoxaparin Sod Inj 40 Mg/0.4 Ml Syringe SC 08/05/24 08:59 40 mg QDAY BJ Administration Folic Acid 1 mg 07/21/24 21:00 07/22/24 08:18 Folic Acid 1 Mg Tablet PO 07/26/24 20:59 1 mg BID BJ Administration Glucagon 1 mg 07/21/24 17:45 Glucagon Inj 1 Mg Vial IM Q15MIN PRN BG <70, and no IV access Ceftriaxone Sodium/Dextrose 50 mls @ 100 mls/hr 07/22/24 09:00 07/22/24 08:18 Rocephin/D5w 1gm Iv Premix IV 07/29/24 08:59 100 mls/hr QDAY@1400 BJ Administration Insulin Human Lispro 0 unit 07/22/24 07:30 07/22/24 12:10 Insulin Lispro (Admelog) 1 Unit/0.01 Ml Unit SC 08/21/24 07:29 1 unit AC BJ Administration Protocol Lorazepam 0.5 mg 07/21/24 17:24 Lorazepam 0.5 Mg Tablet PO 07/26/24 17:23 Q4HR PRN CIWA Score 2-6 Lorazepam 1 mg 07/21/24 17:24 07/22/24 08:19 Lorazepam 0.5 Mg Tablet PO 07/26/24 17:23 1 mg Q4HR PRN Administration CIWA SCORE 7-11 Lorazepam 2 mg 07/21/24 17:24 07/21/24 23:05 Lorazepam 0.5 Mg Tablet PO 07/26/24 17:23 2 mg Q4HR PRN Administration CIWA SCORE 12-15 Lorazepam 1 mg 07/21/24 17:24 Lorazepam 2 Mg/Ml Vial IV X1 PRN Breakthrough Agitation Magnesium Hydroxide 30 ml 07/21/24 17:24 Milk Of Magnesia Susp 30 Ml Udc PO 08/20/24 17:23 QDAY PRN CONSTIPATION Protocol Ondansetron HCl 4 mg 07/21/24 17:24 Ondansetron Inj 2 Mg/Ml Inj 2 Ml IV 08/20/24 17:23 Q6H PRN NAUSEA OR VOMITING Protocol Pharmacy Consult 1 each 07/21/24 23:46 Pharmacy To Consult Pneumovacc XX 08/20/24 23:45 PRN PRN CONSULT Pneumococcal Polyvalent Vaccine 0.5 ml 07/29/24 08:30 Pneumoc 20-Trupti Conj-Dip Crm/Pf 0.5 Ml Syringe IMi 07/29/24 08:31 .ONCE ONE Sennosides 1 tab 07/21/24 17:24 Senna Tablet PO 08/20/24 17:23 QDAY PRN constipation Protocol Sodium Chloride 3 ml 07/21/24 11:20 Sodium Chloride Rt Naomi 0.9% 3 Ml Nebu INH 08/20/24 11:19 PRN PRN SOLN Thiamine HCl 100 mg 07/21/24 21:00 07/22/24 08:18 Thiamine 100 Mg Tablet PO 07/26/24 20:59 100 mg BID BJ Administration Plan 74 y/o M with PMHx significant for asthma, diabetes, hypertension presents to the ED from home with chief complaint of progressive shortness of breath and generalized weakness x 2 weeks, admitted for symptomatic hyponatremia and UTI. #Hyponatremia, symptomatic The patient was found to be hyponatremic at 121 in the ED. Likely due to beer Potomania, patient endorses drinking 3 pints of vodka daily with poor food intake. Urine appears dilute. Urine sodium 31.7. Patient endorses weakness, dizziness on standing. Patient received 1 L bolus normal saline in the ED. Patient was given hypertonic saline 35 mL/h until sodium checks showed serum sodium 125. Sodium increased to 127, was started on D5W. Sodium decreased to 126, discontinued all IV fluids, will continue to closely monitor. -Telemetry -Sodium checks every 4 hours -Nephrology consulted, appreciate recommendations -Fluid restriction 1500 cc -Orthostatic vitals pending -Strict I's and O's #Alcohol withdrawal Patient reports drinking 3 pints of vodka daily. Last drink was night before admission. Entire exam patient has tremors. Patient endorses previous episodes of tremors and hallucinations when he stopped drinking, denies seizures. -Telemetry -[facility] protocol -Consider Librium #UTI, symptomatic Patient reports dysuria x 2 weeks. Patient denies fevers, chills during this time. UA showed positive leukocyte esterase, 538 WBCs. Patient leukocytosis 12.2. Patient afebrile, nonseptic. -Urine cultures pending -Rocephin 1 g IV daily (started 07/21) #Asthma exacerbation, improved Patient presented with chief complaint of shortness of breath, progressive x 2 weeks, not relieved without home inhaler. In ED patient received 125 mg IV Solu-Medrol, 1 breathing treatment. Patient reports significant improvement in symptoms, at time of exam patient satting well on room air, mild diffuse wheezings. At time of exam patient denies shortness of breath. Given patient's good clinical presentation at time of exam, declined to administer continued steroids. -DuoNebs as needed -Monitor O2 saturations #DM, [id number] Patient has history of diabetes, takes metformin outpatient. A1c 6.2% as of 01/11/2024. A1c 6.5% -Carb consistent diet -ISS #HTN, patient history Patient has history as stated. Takes a medication but unsure which one. Med rec's pending. -Amlodipine 10 mg p.o. daily DVT prophylaxis: Lovenox GI prophylaxis: None Diet: Carb consistent, fluid restriction 1500 cc Lines: Peripheral IV Code status: Full code Plan of care discussed with senior resident Dr. Diaz PGY?[address] Grant. Gustavo Arias MD PGY-1 Attending Provider Attestation/Addendum I have examined the patient, reviewed labs and imaging findings, discussed the case with the resident(s), and reviewed entered orders. I agree with the plan of care as outlined in this note, with these additional summaries/recommendations: Patient is a 74-year-old male with a medical history of primary hypertension, GERD, diabetes mellitus type 2, COPD/asthma, normocytic anemia, and restless leg syndrome who presents to [facility] emergency department on 07/21/2024 with chief complaints of weakness, urinary symptoms, and generalized bodyaches. In the emergency department urinalysis is indicative of urinary tract infection and patient was found to have severe hyponatremia and thus hospitalist team was consulted for continuation of care. # Hypotonic hyponatremia Presented with sodium 121 and serum osmolality 245, urine sodium 31.7, TSH 0.24 Volume status: Euvolemic DDx: Medication induced versus extrarenal losses versus SIADH versus low solute intake versus CHF Workup: Obtain urine osmolality, trend sodium every 4-6 hours Plan: Na improving and 129 this morning. S/P hypertonic saline. Continue fluid restriction. Nephrology following. #?Urinary tract infection Does endorse some lower urinary tract symptoms Urinalysis: Leukocyte esterase positive, RBC 19, WBC 538, bacteria none Urine and blood cultures ordered Plan: Continue IV Rocephin. Follow-up culture results and repeat hematology panel in AM. #Alcohol withdrawal Drinks 3 points of hard liquor a day. Last drink 07/20 Plan: CIWA Trending around 8. Continue CIWA protocol #COPD Plan: Breathing treatments as needed # Diabetes mellitus type 2 Well controlled. Last A1C 01/11/24 6.2% Plan: Continue sensitive insulin sliding scale # Primary hypertension Plan: Continue home Norvasc Dr. Grant
--- NOTE | 2024-07-22 14:24 | PC.SS ---
Rounding Note: Plan is to continue sodium checks. Blood cultures are pending.
[2024-07-22 14:40] LABS: Sodium 128 mMol/L (136-145)
--- NOTE | 2024-07-22 16:28 | PC.PT ---
PT eval only. Patient is at his PLOF. Patient is safe to ambulate in the matos and to the bathroom when using a FWW. RN notified.
[2024-07-22 17:59] LABS: Sodium 127 mMol/L (136-145)
[2024-07-22 18:27] LABS: Amphetamine/Methamp Scrn,U Positive (Negative); Barbiturate Screen,Urine Negative (Negative); Benzodiazepines Screen,Urine Negative (Negative); Benzoylecgonine Screen, Ur Negative (Negative); Fentanyl Screen,Urine Negative (Negative); Opiate Screen,Urine Negative (Negative); THC Screen,Urine Negative (Negative)
[2024-07-22] MEDS: LORazepam 0.5 MG TABLET PO (20:46)
[2024-07-22 22:16] LABS: Sodium 128 mMol/L (136-145)
[2024-07-23] VITALS (10 sets, daily range): BP systolic 134–148; BP diastolic 86–94; PULSE 85–106; RESP 18–26; TEMP 35.9–36.9; O2SAT 94–100
[2024-07-23 05:21] LABS: Sodium 129 mMol/L (136-145)
[2024-07-23 06:40] LABS: Basophils # (Auto) 0.1 Thou/mm3 (0.0-0.2); Basophils % (Auto) 1 % (0-2.5); Eosinophils # (Auto) 0.1 Thou/mm3 (0.0-0.5); Eosinophils % (Auto) 1 % (0-10); Hematocrit 37.2 % (41.0-53.0); Hemoglobin 12.4 g/dL (13.5-16.0); Immature Granulocytes % (Auto) 1 % (0-0); Immature Granulocytes Auto 0.06 Thou/mm3 (0.00-0.00); Lymphocytes # (Auto) 1.6 Thou/mm3 (1.0-4.8); Lymphocytes % (Auto) 17 % (10-50); Mean Corpuscular HGB Conc 33.3 g/dl (31.0-37.0); Mean Corpuscular Hemoglobin 25.5 pg (25.0-35.0); Mean Corpuscular Volume 76 fL (80-100); Monocytes % (Auto) 10 % (0-12); Neutrophils # (Auto) 6.9 Thou/mm3 (1.8-7.7); Neutrophils % (Auto) 71 % (37-80); Nucleated Red Blood Cell % 0 /100 WBC (0); Platelet Count 431 Thou/mm3 (140-440); RDW Standard Deviation 41.6 fL (35.1-43.9); Red Blood Count 4.87 Miln/mm3 (4.50-5.90); White Blood Count 9.7 Thou/mm3 (3.8-10.6)
[2024-07-23 07:27] LABS: Alanine Aminotransferase 72 U/L (10-49); Albumin, Serum 4.2 gm/dL (3.4-4.8); Albumin/Globulin Ratio 1.4 (1.2-2.2); Alkaline Phosphatase 63 U/L (46-116); Anion Gap 10 (7-16); Aspartate Amino Transferase 72 U/L (0-34); BUN/Creatinine Ratio 20 Ratio (12-20); Bilirubin,Total 0.5 mg/dL (0.3-1.2); Blood Urea Nitrogen 16 mg/dL (9-23); Calcium 9.1 mg/dL (8.3-10.6); Calcium (Corrected) 9.1 mg/dL (8.5-10.1); Carbon Dioxide 24.3 mMol/L (20.0-31.0); Cardiac Risk Estimate 3.5 RATIO (4.0-6.7); Chloride 95 mMol/L (98-107); Cholesterol 149 mg/dL (132-200); Creatinine (Component) 0.8 mg/dL (0.6-1.3); Estimated Creatinine Clearance 81.8 mL/min (>60); Globulin 2.9 gm/dL (2.3-3.5); Glucose 109 mg/dL (74-106); HDL Cholesterol 42 mg/dL (40-60); LDL Cholesterol,Calculated 95 mg/dL (0-130); Magnesium 1.7 mg/dL (1.6-2.6); Osmolality,Calculated 261 (275-295); Phosphorous 3.3 mg/dL (2.4-5.1); Sodium 129 mMol/L (136-145); Total Protein 7.1 gm/dL (5.7-8.2); Triglycerides 60 mg/dL (30-150); eGFR > 60 See Note
[2024-07-23] MEDS: ENOXAPARIN SOD INJ 40 MG/0.4 ML SYRINGE SC (08:03)
[2024-07-23] MEDS: LORazepam 0.5 MG TABLET PO (08:04)
[2024-07-23] MEDS: THIAMINE 100 MG TABLET PO ×2 (08:04→21:40)
[2024-07-23] MEDS: amLODIPine BESYLATE 5 MG TABLET 10 MG PO (08:04)
[2024-07-23] MEDS: FOLIC ACID 1 MG TABLET PO ×2 (08:04→21:40)
[2024-07-23] MEDS: Magnesium Sulfate 4 GM Ivpb 4 GM/50 ML BAG IV (08:25)
[2024-07-23] MEDS: ALBUTEROL/IPRATROPIUM (Duoneb) RT SOL 3 ML NEBU INH ×2 (08:32→15:42)
--- NOTE | 2024-07-23 08:48 | PC.NURSE ---
[facility] occurred on 07/23/24 from 0100 to 0700.
--- NOTE | 2024-07-23 09:53 | PD.RESPRO ---
Documentation for date of: 07/23/24 Subjective Subjective Interval history: Fidel Tapia is a 74-year-old gentleman with past medical history significant for diabetes, hypertension, asthma, and alcoholism who presented to the emergency department with shortness of breath and weakness x2 weeks. Patient also endorsed dysuria with associated no fever or chills. Patient apparently drinks significant amount of vodka on a daily basis. In ED, labs significant for: WBC 12.2, Na 121, osmolality 245, creatinine wnl, lactic acid 0.9, procal 0.12. UA: turbid, 19 RBC, 540 WBC, LE positive, no bacteria. Urine Na 31.7. Chest x-ray normal. Received 125 mg IV Solu-Medrol, 1 breathing treatment, Rocephin, 1 L bolus NS. Admitted for asymptomatic hyponatremia and started on 3% hypertonic saline with close monitoring of serum sodium. Overnight Na went up to 127 and night team started D5W. In AM, Na 126. Having breakfast. More alert and awake although still a little confusion noted and tremors probably from alcoholism. CIWA protocol was initiated. 07/23: Seen and examined at bedside in telemetry with present. No acute overnight events. Morning Na was 129 with fluid restriction of 1.5 L/day and strict I's and O's. No longer on IVF. Also continues to be on CIWA protocol as noted to have tremors in bilateral upper extremities and lower extremities. States that last drink was on Monday, 07/20. Exam Vital Signs Temp Pulse Resp BP Pulse Ox O2 Del Method 97.2 F 105 H 22 H 139/88 H 100 Room Air 07/23/24 08:00 07/23/24 08:33 07/23/24 08:33 07/23/24 08:04 07/23/24 08:33 07/23/24 08:00 Narrative Exam General: AOx3, no acute distress, able to speak full sentences HEENT: NC/AT, mucous membranes moist, bilateral sclera anicteric Cardiovascular: regular rate and rhythm, S1/S2 present, no murmurs appreciated Pulmonary: mild wheezing auscultated bilaterally Abdominal: distended, soft, non-tender, no rebound/guarding, normal bowel sounds present Musculoskeletal: normal ROM, no peripheral edema Skin: warm and dry, intact, no rashes Neuro: tremors in bilateral upper extremities, CN II-XII intact, no focal deficits Objective Labs 07/23/24 05:14 07/23/24 05:14 Labs: Laboratory Results - last 24 hr 07/22/24 07/22/24 07/22/24 10:35 13:46 17:27 WBC RBC Hgb Hct MCV MCH MCHC RDW Std Deviation Plt Count Neut % (Auto) Lymph % (Auto) [place] % (Auto) Eos % (Auto) Baso % (Auto) Neut # (Auto) Lymph # (Auto) [place] # (Auto) Eos # (Auto) Baso # (Auto) Immature Gran # (Auto) Absolute Nucleated RBC Immature Gran % Nucleated RBC % Sodium 129 L 128 L 127 L Potassium Chloride Carbon Dioxide Anion Gap BUN Creatinine Estim Creat Clear Calc eGFR BUN/Creatinine Ratio Glucose Calculated Osmolality Calcium Corrected Calcium Phosphorus Magnesium Total Bilirubin AST ALT Alkaline Phosphatase Total Protein Albumin Globulin Albumin/Globulin Ratio Triglycerides Cholesterol LDL Cholesterol, Calc HDL Cholesterol Cholesterol/HDL Ratio Urine Opiates Screen Urine Fentanyl Screen Ur Barbiturates Screen U Amphetamin/Meth Scrn U Benzodiazepines Scrn U Cocaine Metab Screen U Marijuana (THC) Screen 07/22/24 07/22/24 07/23/24 17:35 21:40 02:02 WBC RBC Hgb Hct MCV MCH MCHC RDW Std Deviation Plt Count Neut % (Auto) Lymph % (Auto) [place] % (Auto) Eos % (Auto) Baso % (Auto) Neut # (Auto) Lymph # (Auto) [place] # (Auto) Eos # (Auto) Baso # (Auto) Immature Gran # (Auto) Absolute Nucleated RBC Immature Gran % Nucleated RBC % Sodium 128 L 129 L Potassium Chloride Carbon Dioxide Anion Gap BUN Creatinine Estim Creat Clear Calc eGFR BUN/Creatinine Ratio Glucose Calculated Osmolality Calcium Corrected Calcium Phosphorus Magnesium Total Bilirubin AST ALT Alkaline Phosphatase Total Protein Albumin Globulin Albumin/Globulin Ratio Triglycerides Cholesterol LDL Cholesterol, Calc HDL Cholesterol Cholesterol/HDL Ratio Urine Opiates Screen Negative Urine Fentanyl Screen Negative Ur Barbiturates Screen Negative U Amphetamin/Meth Scrn Positive A U Benzodiazepines Scrn Negative U Cocaine Metab Screen Negative U Marijuana (THC) Screen Negative 07/23/24 05:14 WBC 9.7 RBC 4.87 Hgb 12.4 L Hct 37.2 L MCV 76 L MCH 25.5 MCHC 33.3 RDW Std Deviation 41.6 Plt Count 431 D Neut % (Auto) 71 Lymph % (Auto) 17 [place] % (Auto) 10 Eos % (Auto) 1 Baso % (Auto) 1 Neut # (Auto) 6.9 Lymph # (Auto) 1.6 [place] # (Auto) 1.0 H Eos # (Auto) 0.1 Baso # (Auto) 0.1 Immature Gran # (Auto) 0.06 H Absolute Nucleated RBC 0.00 Immature Gran % 1 H Nucleated RBC % 0 Sodium 129 L Potassium 4.0 Chloride 95 L Carbon Dioxide 24.3 Anion Gap 10 BUN 16 Creatinine 0.8 Estim Creat Clear Calc 81.8 eGFR > 60 BUN/Creatinine Ratio 20 Glucose 109 H D Calculated Osmolality 261 L Calcium 9.1 Corrected Calcium 9.1 Phosphorus 3.3 Magnesium 1.7 Total Bilirubin 0.5 AST 72 H ALT 72 H Alkaline Phosphatase 63 Total Protein 7.1 Albumin 4.2 Globulin 2.9 Albumin/Globulin Ratio 1.4 Triglycerides 60 Cholesterol 149 LDL Cholesterol, Calc 95 HDL Cholesterol 42 Cholesterol/HDL Ratio 3.5 L Urine Opiates Screen Urine Fentanyl Screen Ur Barbiturates Screen U Amphetamin/Meth Scrn U Benzodiazepines Scrn U Cocaine Metab Screen U Marijuana (THC) Screen Quality Measures Quality Measures VTE prophylaxis Advance care planning discussed with:: patient and spouse Assessment & Plan Assessment Current Active Medications: Generic Name Dose Route Start Last Admin Trade Name Freq PRN Reason Stop Dose Admin Acetaminophen 650 mg 07/21/24 17:24 Acetaminophen 325 Mg Tablet PO 08/20/24 17:23 Q6H PRN Fever >100.4 or pain Albuterol/Ipratropium 3 ml 07/21/24 17:24 07/23/24 08:32 Albuterol/Ipratropium (Duoneb) Rt Naomi 3 Ml Nebu INH 08/20/24 17:23 3 ml Q2HR PRN Administration SHORTNESS OF BREATH OR WHEEZE Amlodipine Besylate 10 mg 07/22/24 11:15 07/23/24 08:04 Amlodipine Besylate 5 Mg Tablet PO 08/21/24 11:14 10 mg QDAY BJ Administration Dextrose 25 ml 07/21/24 17:45 Dextrose 50%-Water Inj 50 Ml Syringe IV 08/20/24 17:44 Q15MIN PRN BG 50-70 responsive npo pt Dextrose 50 ml 07/21/24 17:45 Dextrose 50%-Water Inj 50 Ml Syringe IV 08/20/24 17:44 Q15MIN PRN BG <50 OR BG <70 & pt unresponsive Enoxaparin Sodium 40 mg 07/22/24 09:00 07/23/24 08:03 Enoxaparin Sod Inj 40 Mg/0.4 Ml Syringe SC 08/05/24 08:59 40 mg QDAY BJ Administration Folic Acid 1 mg 07/21/24 21:00 07/23/24 08:04 Folic Acid 1 Mg Tablet PO 07/26/24 20:59 1 mg BID BJ Administration Glucagon 1 mg 07/21/24 17:45 Glucagon Inj 1 Mg Vial IM Q15MIN PRN BG <70, and no IV access Ceftriaxone Sodium/Dextrose 50 mls @ 100 mls/hr 07/22/24 09:00 07/22/24 14:40 Rocephin/D5w 1gm Iv Premix IV 07/29/24 08:59 100 mls/hr QDAY@1400 BJ Administration Magnesium Sulfate 4 gm in 50 mls @ 12.5 mls/hr 07/23/24 08:10 07/23/24 08:25 Magnesium Sulfate Ivpb IV 07/23/24 12:09 12.5 mls/hr X1 ONE Administration Influenza Virus Vaccine Quadrival 0.5 ml 07/29/24 14:30 Influenza Virus Quadrivalent 0.5 Ml Syringe IMi 07/29/24 14:31 .ONCE ONE Insulin Human Lispro 0 unit 07/22/24 07:30 07/23/24 07:38 Insulin Lispro (Admelog) 1 Unit/0.01 Ml Unit SC 08/21/24 07:29 Not Given AC [facility] Protocol Lorazepam 0.5 mg 07/21/24 17:24 07/23/24 08:04 Lorazepam 0.5 Mg Tablet PO 07/26/24 17:23 0.5 mg Q4HR PRN Administration CIWA Score 2-6 Lorazepam 1 mg 07/21/24 17:24 07/22/24 23:32 Lorazepam 0.5 Mg Tablet PO 07/26/24 17:23 1 mg Q4HR PRN Administration CIWA SCORE 7-11 Lorazepam 2 mg 07/21/24 17:24 07/21/24 23:05 Lorazepam 0.5 Mg Tablet PO 07/26/24 17:23 2 mg Q4HR PRN Administration CIWA SCORE 12-15 Lorazepam 1 mg 07/21/24 17:24 Lorazepam 2 Mg/Ml Vial IV X1 PRN Breakthrough Agitation Magnesium Hydroxide 30 ml 07/21/24 17:24 Milk Of Magnesia Susp 30 Ml Udc PO 08/20/24 17:23 QDAY PRN CONSTIPATION Protocol Ondansetron HCl 4 mg 07/21/24 17:24 Ondansetron Inj 2 Mg/Ml Inj 2 Ml IV 08/20/24 17:23 Q6H PRN NAUSEA OR VOMITING Protocol Pharmacy Consult 1 each 07/21/24 23:46 Pharmacy To Consult Pneumovacc XX 08/20/24 23:45 PRN PRN CONSULT Pneumococcal Polyvalent Vaccine 0.5 ml 07/29/24 08:30 Pneumoc 20-Trupti Conj-Dip Crm/Pf 0.5 Ml Syringe IMi 07/29/24 08:31 .ONCE ONE Sennosides 1 tab 07/21/24 17:24 Senna Tablet PO 08/20/24 17:23 QDAY PRN constipation Protocol Sodium Chloride 3 ml 07/21/24 11:20 Sodium Chloride Rt Naomi 0.9% 3 Ml Nebu INH 08/20/24 11:19 PRN PRN SOLN Thiamine HCl 100 mg 07/21/24 21:00 07/23/24 08:04 Thiamine 100 Mg Tablet PO 07/26/24 20:59 100 mg BID BJ Administration Plan Fidel Tapia is a 74-year-old gentleman with past medical history significant for diabetes, hypertension, asthma, and alcoholism who was admitted for severe hyponatremia and nephrology consulted for same. #Hypoosmolar hyponatremia, suspect Beer potomania Na 121 and serum osm 245 on admission, currently uptrended to 129 and 261, respectively while on fluid restriction only. Pending urine osmolality. Urine Na 31 wnl. Per , patient does not consume very much protein in his diet, which otherwise consists of significant amount of carbohydrates and alcohol. Given that Na has improved, recommend to continue with fluid restriction and consider oral salt tablets if refractory. ? Continue with fluid restriction ? Continue to monitor sodium closely ? Advised to consume more balanced diet and abstinence from alcohol #Asthma exacerbation #Alcohol use #Alcohol withdrawal #Urinary tract infection #Generalized weakness #Type 2 diabetes mellitus #Hypertension ? Continue management per primary team ----- Plan discussed with attending physician Dr. Kenneth Douglas MD PGY-1 Internal Medicine Attending Provider Attestation/Addendum Patient seen and examined with resident physician Dr. Irizarry. Note reviewed, agree with findings and recommendations. Sodium better- 129
[2024-07-23] MEDS: LORazepam 0.5 MG TABLET 1 MG PO (12:14)
[2024-07-23] MEDS: cefTRIAXone/D5w 1gm IV premix 50 ML IV (14:12)
--- NOTE | 2024-07-23 14:30 | ESPR_ITS ---
<Statement entered by Dylan Diaz MD - 07/23/24 15:10> Patient was seen and examined at the bedside this morning. Patient continues to have tremors in hands and therefore we kept for 1 more day on CIWA protocol. Will continue with ceftriaxone for UTI and urine cultures are pending still. Electrolytes were repleted. Sodium improved to 129. Anticipating discharge tomorrow. I saw and examined the patient, and I agree with current management stated by Dr Moo DO,PGY1. Plan of care was discussed with the attending physician and resident physician. Disclaimer: Despite multiple revisions, due to the dictation software being used, the document bellow may not be free of grammatical errors including phonetic/typographic errors. However, this does not deter from our commitment to providing health care in the patient's best interest in mind. Dr. Len MD, PGY 2 Documentation for date of: 07/23/24 Subjective Subjective Interval history: Patient still little tremulous this morning requiring lorazepam and somewhat unsteady on feet. Will monitor for 1 more day and plan on discharge tomorrow. Sodium normalized to 129 this morning. Exam Vital Signs Temp Pulse Resp BP Pulse Ox O2 Del Method 96.7 F L 90 22 H 134/90 H 94 L Room Air 07/23/24 12:00 07/23/24 12:00 07/23/24 12:00 07/23/24 12:00 07/23/24 12:07/23/24 12:00 Narrative Exam Constitutional: Not in acute distress Head: Normocephalic/Atraumatic, large melanocytic mole in the center of his forehead with a irregular borders Eyes: no conjunctival injection , symmetrical lids. ENMT: Moist Mucous Membranes, fasciculations of the tongue CVS: RRR, S1 and S2 present, no murmurs, rubs or gallops . RESP: no increased work of breathing Skin: Warm to touch, Dry. No rashes or lesions. Neuro: Moves all limbs spontaneously, bilateral tremors of the hands Psych: (AAO) x3 . Appropriate mood and affect. Objective Labs 07/23/24 05:14 07/23/24 05:14 Labs: Laboratory Results - last 24 hr 07/22/24 07/22/24 07/22/24 13:46 17:27 17:35 WBC RBC Hgb Hct MCV MCH MCHC RDW Std Deviation Plt Count Neut % (Auto) Lymph % (Auto) [place] % (Auto) Eos % (Auto) Baso % (Auto) Neut # (Auto) Lymph # (Auto) [place] # (Auto) Eos # (Auto) Baso # (Auto) Immature Gran # (Auto) Absolute Nucleated RBC Immature Gran % Nucleated RBC % Sodium 128 L 127 L Potassium Chloride Carbon Dioxide Anion Gap BUN Creatinine Estim Creat Clear Calc eGFR BUN/Creatinine Ratio Glucose Calculated Osmolality Calcium Corrected Calcium Phosphorus Magnesium Total Bilirubin AST ALT Alkaline Phosphatase Total Protein Albumin Globulin Albumin/Globulin Ratio Triglycerides Cholesterol LDL Cholesterol, Calc HDL Cholesterol Cholesterol/HDL Ratio Urine Opiates Screen Negative Urine Fentanyl Screen Negative Ur Barbiturates Screen Negative U Amphetamin/Meth Scrn Positive A U Benzodiazepines Scrn Negative U Cocaine Metab Screen Negative U Marijuana (THC) Screen Negative 07/22/24 07/23/24 07/23/24 21:40 02:02 05:14 WBC 9.7 RBC 4.87 Hgb 12.4 L Hct 37.2 L MCV 76 L MCH 25.5 MCHC 33.3 RDW Std Deviation 41.6 Plt Count 431 D Neut % (Auto) 71 Lymph % (Auto) 17 [place] % (Auto) 10 Eos % (Auto) 1 Baso % (Auto) 1 Neut # (Auto) 6.9 Lymph # (Auto) 1.6 [place] # (Auto) 1.0 H Eos # (Auto) 0.1 Baso # (Auto) 0.1 Immature Gran # (Auto) 0.06 H Absolute Nucleated RBC 0.00 Immature Gran % 1 H Nucleated RBC % 0 Sodium 128 L 129 L 129 L Potassium 4.0 Chloride 95 L Carbon Dioxide 24.3 Anion Gap 10 BUN 16 Creatinine 0.8 Estim Creat Clear Calc 81.8 eGFR > 60 BUN/Creatinine Ratio 20 Glucose 109 H D Calculated Osmolality 261 L Calcium 9.1 Corrected Calcium 9.1 Phosphorus 3.3 Magnesium 1.7 Total Bilirubin 0.5 AST 72 H ALT 72 H Alkaline Phosphatase 63 Total Protein 7.1 Albumin 4.2 Globulin 2.9 Albumin/Globulin Ratio 1.4 Triglycerides 60 Cholesterol 149 LDL Cholesterol, Calc 95 HDL Cholesterol 42 Cholesterol/HDL Ratio 3.5 L Urine Opiates Screen Urine Fentanyl Screen Ur Barbiturates Screen U Amphetamin/Meth Scrn U Benzodiazepines Scrn U Cocaine Metab Screen U Marijuana (THC) Screen Quality Measures Quality Measures VTE prophylaxis Advance care planning discussed with:: other Assessment & Plan Assessment Current Active Medications: Generic Name Dose Route Start Last Admin Trade Name Freq PRN Reason Stop Dose Admin Acetaminophen 650 mg 07/21/24 17:24 Acetaminophen 325 Mg Tablet PO 08/20/24 17:23 Q6H PRN Fever >100.4 or pain Albuterol/Ipratropium 3 ml 07/21/24 17:24 07/23/24 08:32 Albuterol/Ipratropium (Duoneb) Rt Naomi 3 Ml Nebu INH 08/20/24 17:23 3 ml Q2HR PRN Administration SHORTNESS OF BREATH OR WHEEZE Amlodipine Besylate 10 mg 07/22/24 11:15 07/23/24 08:04 Amlodipine Besylate 5 Mg Tablet PO 08/21/24 11:14 10 mg QDAY BJ Administration Dextrose 25 ml 07/21/24 17:45 Dextrose 50%-Water Inj 50 Ml Syringe IV 08/20/24 17:44 Q15MIN PRN BG 50-70 responsive npo pt Dextrose 50 ml 07/21/24 17:45 Dextrose 50%-Water Inj 50 Ml Syringe IV 08/20/24 17:44 Q15MIN PRN BG <50 OR BG <70 & pt unresponsive Enoxaparin Sodium 40 mg 07/22/24 09:00 07/23/24 08:03 Enoxaparin Sod Inj 40 Mg/0.4 Ml Syringe SC 08/05/24 08:59 40 mg QDAY BJ Administration Folic Acid 1 mg 07/21/24 21:00 07/23/24 08:04 Folic Acid 1 Mg Tablet PO 07/26/24 20:59 1 mg BID BJ Administration Glucagon 1 mg 07/21/24 17:45 Glucagon Inj 1 Mg Vial IM Q15MIN PRN BG <70, and no IV access Ceftriaxone Sodium/Dextrose 50 mls @ 100 mls/hr 07/22/24 09:00 07/23/24 14:12 Rocephin/D5w 1gm Iv Premix IV 07/29/24 08:59 100 mls/hr QDAY@1400 BJ Administration Influenza Virus Vaccine Quadrival 0.5 ml 07/29/24 14:30 Influenza Virus Quadrivalent 0.5 Ml Syringe IMi 07/29/24 14:31 .ONCE ONE Insulin Human Lispro 0 unit 07/22/24 07:30 07/23/24 12:13 Insulin Lispro (Admelog) 1 Unit/0.01 Ml Unit SC 08/21/24 07:29 Not Given AC [facility] Protocol Lorazepam 0.5 mg 07/21/24 17:24 07/23/24 08:04 Lorazepam 0.5 Mg Tablet PO 07/26/24 17:23 0.5 mg Q4HR PRN Administration CIWA Score 2-6 Lorazepam 1 mg 07/21/24 17:24 07/23/24 12:14 Lorazepam 0.5 Mg Tablet PO 07/26/24 17:23 1 mg Q4HR PRN Administration CIWA SCORE 7-11 Lorazepam 2 mg 07/21/24 17:24 07/21/24 23:05 Lorazepam 0.5 Mg Tablet PO 07/26/24 17:23 2 mg Q4HR PRN Administration CIWA SCORE 12-15 Lorazepam 1 mg 07/21/24 17:24 Lorazepam 2 Mg/Ml Vial IV X1 PRN Breakthrough Agitation Magnesium Hydroxide 30 ml 07/21/24 17:24 Milk Of Magnesia Susp 30 Ml Udc PO 08/20/24 17:23 QDAY PRN CONSTIPATION Protocol Ondansetron HCl 4 mg 07/21/24 17:24 Ondansetron Inj 2 Mg/Ml Inj 2 Ml IV 08/20/24 17:23 Q6H PRN NAUSEA OR VOMITING Protocol Pharmacy Consult 1 each 07/21/24 23:46 Pharmacy To Consult Pneumovacc XX 08/20/24 23:45 PRN PRN CONSULT Pneumococcal Polyvalent Vaccine 0.5 ml 07/29/24 08:30 Pneumoc 20-Trupti Conj-Dip Crm/Pf 0.5 Ml Syringe IMi 07/29/24 08:31 .ONCE ONE Sennosides 1 tab 07/21/24 17:24 Senna Tablet PO 08/20/24 17:23 QDAY PRN constipation Protocol Sodium Chloride 3 ml 07/21/24 11:20 Sodium Chloride Rt Naomi 0.9% 3 Ml Nebu INH 08/20/24 11:19 PRN PRN SOLN Thiamine HCl 100 mg 07/21/24 21:00 07/23/24 08:04 Thiamine 100 Mg Tablet PO 07/26/24 20:59 100 mg BID [facility] Administration Plan 74 y/o M with PMHx significant for asthma, diabetes, hypertension presents to the ED from home with chief complaint of progressive shortness of breath and generalized weakness x 2 weeks, admitted for symptomatic hyponatremia and UTI. #Hyponatremia, symptomatic?improved The patient was found to be hyponatremic at 121 in the ED. Likely due to beer Potomania, patient endorses drinking 3 pints of vodka daily with poor food intake. Urine appears dilute. Urine sodium 31.7. Patient endorses weakness, dizziness on standing. Patient received 1 L bolus normal saline in the ED. Sodium now at 129. -Telemetry -Nephrology consulted, appreciate recommendations -Fluid restriction 1500 cc -Strict I's and O's #Alcohol withdrawal Patient reports drinking 3 pints of vodka daily. Last drink was night before admission. Entire exam patient has tremors. Patient endorses previous episodes of tremors and hallucinations when he stopped drinking, denies seizures. -Telemetry -CIWA protocol #UTI, symptomatic Patient reports dysuria x 2 weeks. Patient denies fevers, chills during this time. UA showed positive leukocyte esterase, 538 WBCs. Patient leukocytosis 12.2. Patient afebrile, nonseptic. -Urine cultures pending -Rocephin 1 g IV daily (started 07/21) #Asthma exacerbation-resolved #DM, [id number] Patient has history of diabetes, takes metformin outpatient. A1c 6.2% as of 01/11/2024. A1c 6.5% -Carb consistent diet -ISS #HTN, patient history -Amlodipine 10 mg p.o. daily DVT prophylaxis: Lovenox GI prophylaxis: None Diet: Carb consistent, fluid restriction 1500 cc Lines: Peripheral IV Code status: Full code Plan of care discussed with senior resident Dr. Diaz PGY?[address] Grant. Ramakrishna Cortés, PGY-1 Attending Provider Attestation/Addendum I have examined the patient, reviewed labs and imaging findings, discussed the case with the resident(s), and reviewed entered orders. I agree with the plan of care as outlined in this note, with these additional summaries/recommendations: Patient is a 74-year-old male with a medical history of primary hypertension, GERD, diabetes mellitus type 2, COPD/asthma, normocytic anemia, and restless leg syndrome who presents to [facility] emergency department on 07/21/2024 with chief complaints of weakness, urinary symptoms, and generalized bodyaches. In the emergency department urinalysis is indicative of urinary tract infection and patient was found to have severe hyponatremia and thus hospitalist team was consulted for continuation of care. #Alcohol withdrawal #Substance Abuse Drinks 3 points of hard liquor a day. Last drink 07/20 Plan: CIWA Trending around 8. Continue CIWA protocol and if improves anticipcate discharge in the next 24 to 48 hours. Counseled extensively on cessation of illegal substances # Hypotonic hyponatremia Presented with sodium 121 and serum osmolality 245, urine sodium 31.7, TSH 0.24 Volume status: Euvolemic DDx: Medication induced versus extrarenal losses versus SIADH versus low solute intake versus CHF Workup: Obtain urine osmolality, trend sodium every 4-6 hours Plan: Na improving and 129 this morning. S/P hypertonic saline. Continue fluid restriction. Nephrology following. #?Urinary tract infection Does endorse some lower urinary tract symptoms Urinalysis: Leukocyte esterase positive, RBC 19, WBC 538, bacteria none Urine cx: E. Coli Plan: Continue IV Rocephin. #COPD Plan: Breathing treatments as needed # Diabetes mellitus type 2 Well controlled. Last A1C 01/11/24 6.2% Plan: Continue sensitive insulin sliding scale # Primary hypertension Plan: Continue home Norvasc Dr. Grant
[2024-07-23] MEDS: LORazepam 0.5 MG TABLET 2 MG PO ×2 (17:19→23:19)
[2024-07-24] VITALS (12 sets, daily range): BP systolic 125–148; BP diastolic 74–92; PULSE 84–99; RESP 16–23; TEMP 36.1–36.8; O2SAT 92–99; BMI 25.3
[2024-07-24] MEDS: chlordiazePOXIDE HCl 25 MG CAPSULE PO ×3 (01:05→21:05)
--- NOTE | 2024-07-24 01:35 | PC.NURSE ---
PATIENT STILL APPEARS VERY ANXIOUS,RESTLESS,UNABLE TO SLEEP.DR. NOLAND MADE AWARE WITH INSTRUCTION TO GIVE 1MG IV ATIVAN ORDERED.
[2024-07-24] MEDS: LORazepam 2 MG/ML VIAL 1 MG IV (01:43)
[2024-07-24] MEDS: ALBUTEROL/IPRATROPIUM (Duoneb) RT SOL 3 ML NEBU INH ×2 (04:18→09:29)
[2024-07-24 06:41] LABS: Basophils % (Auto) 1 % (0-2.5); Eosinophils # (Auto) 0.2 Thou/mm3 (0.0-0.5); Eosinophils % (Auto) 3 % (0-10); Hemoglobin 12.3 g/dL (13.5-16.0); Immature Granulocytes % (Auto) 1 % (0-0); Immature Granulocytes Auto 0.03 Thou/mm3 (0.00-0.00); Lymphocytes # (Auto) 1.5 Thou/mm3 (1.0-4.8); Lymphocytes % (Auto) 24 % (10-50); Mean Corpuscular HGB Conc 33.2 g/dl (31.0-37.0); Mean Corpuscular Hemoglobin 25.3 pg (25.0-35.0); Mean Corpuscular Volume 76 fL (80-100); Monocytes # (Auto) 0.8 Thou/mm3 (0.0-0.8); Monocytes % (Auto) 12 % (0-12); Neutrophils # (Auto) 3.6 Thou/mm3 (1.8-7.7); Neutrophils % (Auto) 59 % (37-80); Nucleated Red Blood Cell % 0 /100 WBC (0); Platelet Count 400 Thou/mm3 (140-440); RDW Standard Deviation 41.5 fL (35.1-43.9); Red Blood Count 4.87 Miln/mm3 (4.50-5.90); White Blood Count 6.1 Thou/mm3 (3.8-10.6)
[2024-07-24 07:07] LABS: Alanine Aminotransferase 90 U/L (10-49); Albumin/Globulin Ratio 1.4 (1.2-2.2); Alkaline Phosphatase 58 U/L (46-116); Anion Gap 7 (7-16); Aspartate Amino Transferase 70 U/L (0-34); BUN/Creatinine Ratio 19 Ratio (12-20); Bilirubin,Total 0.7 mg/dL (0.3-1.2); Blood Urea Nitrogen 13 mg/dL (9-23); Calcium 8.9 mg/dL (8.3-10.6); Calcium (Corrected) 8.9 mg/dL (8.5-10.1); Carbon Dioxide 27.7 mMol/L (20.0-31.0); Chloride 94 mMol/L (98-107); Creatinine (Component) 0.7 mg/dL (0.6-1.3); Estimated Creatinine Clearance 83.5 mL/min (>60); Globulin 2.9 gm/dL (2.3-3.5); Glucose 117 mg/dL (74-106); Magnesium 1.9 mg/dL (1.6-2.6); Osmolality,Calculated 260 (275-295); Phosphorous 3.7 mg/dL (2.4-5.1); Potassium 3.8 mMol/L (3.4-5.1); Sodium 129 mMol/L (136-145); Total Protein 6.9 gm/dL (5.7-8.2); eGFR > 60 See Note
[2024-07-24] MEDS: amLODIPine BESYLATE 5 MG TABLET 10 MG PO (08:17)
[2024-07-24] MEDS: FOLIC ACID 1 MG TABLET PO ×2 (08:17→20:19)
[2024-07-24] MEDS: ENOXAPARIN SOD INJ 40 MG/0.4 ML SYRINGE SC (08:18)
[2024-07-24] MEDS: THIAMINE 100 MG TABLET PO ×2 (08:18→20:19)
--- NOTE | 2024-07-24 08:31 | ESPR_ITS ---
Documentation for date of: 07/24/24 Subjective Subjective Interval history: Fidel Tapia is a 74-year-old gentleman with past medical history significant for diabetes, hypertension, asthma, and alcoholism who presented to the emergency department with shortness of breath and weakness x2 weeks. Patient also endorsed dysuria with associated no fever or chills. Patient apparently drinks significant amount of vodka on a daily basis. In ED, labs significant for: WBC 12.2, Na 121, osmolality 245, creatinine wnl, lactic acid 0.9, procal 0.12. UA: turbid, 19 RBC, 540 WBC, LE positive, no bacteria. Urine Na 31.7. Chest x-ray normal. Received 125 mg IV Solu-Medrol, 1 breathing treatment, Rocephin, 1 L bolus NS. Admitted for asymptomatic hyponatremia and started on 3% hypertonic saline with close monitoring of serum sodium. Overnight Na went up to 127 and night team started D5W. In AM, Na 126. Having breakfast. More alert and awake although still a little confusion noted and tremors probably from alcoholism. CIWA protocol was initiated. 07/23: Seen and examined at bedside in telemetry with present. No acute overnight events. Morning Na was 129 with fluid restriction of 1.5 L/day and strict I's and O's. No longer on IVF. Also continues to be on CIWA protocol as noted to have tremors in bilateral upper extremities and lower extremities. States that last drink was on Monday, 07/20. 07/24: Seen and examined at bedside on medical floor with present. No acute overnight events, however per , patient had a restless night. States that he was confused and attempted to pull out his lines. Last three CIWA scores were 12 and received total 6 mg lorazepam throughout night. Otherwise, Na stable at 129 on fluid restriction and recommend to continue. Exam Vital Signs Temp Pulse Resp BP Pulse Ox O2 Del Method 97.3 F 96 18 148/90 H 94 L Room Air 07/24/24 07:59 07/24/24 08:17 07/24/24 07:59 07/24/24 08:17 07/24/24 07:59 07/24/24 07:59 Narrative Exam General: AOx3, no acute distress, able to speak full sentences HEENT: NC/AT, mucous membranes moist, bilateral sclera anicteric Cardiovascular: regular rate and rhythm, S1/S2 present, no murmurs appreciated Pulmonary: wheezing auscultated bilaterally Abdominal: soft, non-tender, non-distended, no rebound/guarding, normal bowel sounds present Musculoskeletal: normal ROM, no peripheral edema Skin: warm and dry, intact, no rashes Objective Labs 07/25/24 05:55 07/25/24 05:55 Labs: Laboratory Results - last 24 hr 07/24/24 05:40 WBC 6.1 RBC 4.87 Hgb 12.3 L Hct 37.0 L MCV 76 L MCH 25.3 MCHC 33.2 RDW Std Deviation 41.5 Plt Count 400 D Neut % (Auto) 59 Lymph % (Auto) 24 [place] % (Auto) 12 Eos % (Auto) 3 Baso % (Auto) 1 Neut # (Auto) 3.6 Lymph # (Auto) 1.5 [place] # (Auto) 0.8 Eos # (Auto) 0.2 Baso # (Auto) 0.0 Immature Gran # (Auto) 0.03 H Absolute Nucleated RBC 0.00 Immature Gran % 1 H Nucleated RBC % 0 Sodium 129 L Potassium 3.8 Chloride 94 L Carbon Dioxide 27.7 Anion Gap 7 BUN 13 Creatinine 0.7 Estim Creat Clear Calc 83.5 eGFR > 60 BUN/Creatinine Ratio 19 Glucose 117 H Calculated Osmolality 260 L Calcium 8.9 Corrected Calcium 8.9 Phosphorus 3.7 Magnesium 1.9 Total Bilirubin 0.7 AST 70 H ALT 90 H Alkaline Phosphatase 58 Total Protein 6.9 Albumin 4.0 Globulin 2.9 Albumin/Globulin Ratio 1.4 Quality Measures Quality Measures VTE prophylaxis Advance care planning discussed with:: patient and spouse Assessment & Plan Assessment Current Active Medications: Generic Name Dose Route Start Last Admin Trade Name Freq PRN Reason Stop Dose Admin Acetaminophen 650 mg 07/21/24 17:24 Acetaminophen 325 Mg Tablet PO 08/20/24 17:23 Q6H PRN Fever >100.4 or pain Albuterol/Ipratropium 3 ml 07/21/24 17:24 07/24/24 04:18 Albuterol/Ipratropium (Duoneb) Rt Naomi 3 Ml Nebu INH 08/20/24 17:23 3 ml Q2HR PRN Administration SHORTNESS OF BREATH OR WHEEZE Amlodipine Besylate 10 mg 07/22/24 11:15 07/24/24 08:17 Amlodipine Besylate 5 Mg Tablet PO 08/21/24 11:14 10 mg QDAY BJ Administration Chlordiazepoxide HCl 25 mg 07/24/24 00:30 07/24/24 06:00 Chlordiazepoxide Hcl 25 Mg Capsule PO 07/29/24 00:29 Not Given Q8HR BJ Dextrose 25 ml 07/21/24 17:45 Dextrose 50%-Water Inj 50 Ml Syringe IV 08/20/24 17:44 Q15MIN PRN BG 50-70 responsive npo pt Dextrose 50 ml 07/21/24 17:45 Dextrose 50%-Water Inj 50 Ml Syringe IV 08/20/24 17:44 Q15MIN PRN BG <50 OR BG <70 & pt unresponsive Enoxaparin Sodium 40 mg 07/22/24 09:00 07/24/24 08:18 Enoxaparin Sod Inj 40 Mg/0.4 Ml Syringe SC 08/05/24 08:59 40 mg QDAY BJ Administration Folic Acid 1 mg 07/21/24 21:00 07/24/24 08:17 Folic Acid 1 Mg Tablet PO 07/26/24 20:59 1 mg BID BJ Administration Glucagon 1 mg 07/21/24 17:45 Glucagon Inj 1 Mg Vial IM Q15MIN PRN BG <70, and no IV access Ceftriaxone Sodium/Dextrose 50 mls @ 100 mls/hr 07/22/24 09:00 07/23/24 14:12 Rocephin/D5w 1gm Iv Premix IV 07/29/24 08:59 100 mls/hr QDAY@1400 BJ Administration Influenza Virus Vaccine Quadrival 0.5 ml 07/29/24 14:30 Influenza Virus Quadrivalent 0.5 Ml Syringe IMi 07/29/24 14:31 .ONCE ONE Insulin Human Lispro 0 unit 07/22/24 07:30 07/24/24 08:21 Insulin Lispro (Admelog) 1 Unit/0.01 Ml Unit SC 08/21/24 07:29 Not Given AC [facility] Protocol Lorazepam 0.5 mg 07/21/24 17:24 07/23/24 08:04 Lorazepam 0.5 Mg Tablet PO 07/26/24 17:23 0.5 mg Q4HR PRN Administration CIWA Score 2-6 Lorazepam 1 mg 07/21/24 17:24 07/23/24 12:14 Lorazepam 0.5 Mg Tablet PO 07/26/24 17:23 1 mg Q4HR PRN Administration CIWA SCORE 7-11 Lorazepam 2 mg 07/21/24 17:24 07/23/24 23:19 Lorazepam 0.5 Mg Tablet PO 07/26/24 17:23 2 mg Q4HR PRN Administration CIWA SCORE 12-15 Magnesium Hydroxide 30 ml 07/21/24 17:24 Milk Of Magnesia Susp 30 Ml Udc PO 08/20/24 17:23 QDAY PRN CONSTIPATION Protocol Ondansetron HCl 4 mg 07/21/24 17:24 Ondansetron Inj 2 Mg/Ml Inj 2 Ml IV 08/20/24 17:23 Q6H PRN NAUSEA OR VOMITING Protocol Pharmacy Consult 1 each 07/21/24 23:46 Pharmacy To Consult Pneumovacc XX 08/20/24 23:45 PRN PRN CONSULT Pneumococcal Polyvalent Vaccine 0.5 ml 07/29/24 08:30 Pneumoc 20-Trupti Conj-Dip Crm/Pf 0.5 Ml Syringe IMi 07/29/24 08:31 .ONCE ONE Sennosides 1 tab 07/21/24 17:24 Senna Tablet PO 08/20/24 17:23 QDAY PRN constipation Protocol Sodium Chloride 3 ml 07/21/24 11:20 Sodium Chloride Rt Naomi 0.9% 3 Ml Nebu INH 08/20/24 11:19 PRN PRN SOLN Thiamine HCl 100 mg 07/21/24 21:00 07/24/24 08:18 Thiamine 100 Mg Tablet PO 07/26/24 20:59 100 mg BID BJ Administration Plan Fidel Tapia is a 74-year-old gentleman with past medical history significant for diabetes, hypertension, asthma, and alcoholism who was admitted for severe hyponatremia and nephrology consulted for same. #Hypoosmolar hyponatremia, suspect Beer potomania Na 121 and serum osm 245 on admission, currently stable at 129 while on fluid restriction only. Still pending urine osmolality. Urine Na 31 wnl. Per , patient does not consume very much protein in his diet, which otherwise consists of significant amount of carbohydrates and alcohol. Given that Na has improved, recommend to continue with fluid restriction and consider oral salt tablets if refractory. ? Continue with fluid restriction ? Advised to consume more balanced diet and abstinence from alcohol #Asthma exacerbation #Alcohol use #Alcohol withdrawal #Urinary tract infection #Generalized weakness #Type 2 diabetes mellitus #Hypertension ? Continue management per primary team ----- Plan discussed with attending physician Dr. Kenneth Douglas MD PGY-1 Internal Medicine Attending Provider Attestation/Addendum Patient seen and examined with resident physician Dr. Irizarry. Note reviewed, agree with findings and recommendations. Patient currently seen in medical floor. at bedside. He seems to be very confused. My understanding combative at night. Probably related to alcohol withdrawal. Sodium improved to 129. Off fluids. Currently on fluid restriction. AST ALT still elevated from alcoholism. Renal gipson continue with same management.
--- NOTE | 2024-07-24 11:33 | PC.SS ---
Rounding:CIWA protocol, pending neuro consult
[2024-07-24] MEDS: SODIUM CHLORIDE 1 GM TABLET PO (11:51)
[2024-07-24] MEDS: cefTRIAXone/D5w 1gm IV premix 50 ML IV (14:12)
--- NOTE | 2024-07-24 14:29 | ESPR_ITS ---
<Statement entered by Dylan Diaz MD - 07/24/24 15:21> Patient was seen and examined at the bedside. overnight, patient was confused and Librium was added by night resident. Patient was also wheezing this morning and breathing treatments were given. Patient's sodium is currently at 129 therefore salt tablets were started. Will continue with CIWA protocol. Will keep him for 1 more day to evaluate his clinical improvement. All labs and orders were reviewed. I saw and examined the patient, and I agree with current management stated by Dr Moo MD,PGY1. Plan of care was discussed with the attending physician and resident physician. Disclaimer: Despite multiple revisions, due to the dictation software being used, the document bellow may not be free of grammatical errors including phonetic/typographic errors. However, this does not deter from our commitment to providing health care in the patient's best interest in mind. Dr. Joe MD, PGY 2 Documentation for date of: 07/24/24 Subjective Subjective Interval history: Overnight patient had a CIWA of 12 and was given Librium and lorazepam. Continues to be tremulous this morning, still having difficulty ambulating and ataxia of the upper extremities. Also having generalized weakness. Per family patient has had difficulty ambulating over the last 3 to 4 weeks. He endorses not feeling well and was diaphoretic and slightly confused last night. No fevers, chills or flulike symptoms. Exam Vital Signs Temp Pulse Resp BP Pulse Ox O2 Del Method 97.5 F 94 18 125/88 H 96 Room Air 07/24/24 12:00 07/24/24 12:07/24/24 12:07/24/24 12:07/24/24 12:07/24/24 12:00 Narrative Exam Constitutional: Not in acute distress Head: Normocephalic/Atraumatic, large melanocytic mole in the center of his forehead with a irregular borders Eyes: no conjunctival injection , symmetrical lids. ENMT: Moist Mucous Membranes, fasciculations of the tongue CVS: RRR, S1 and S2 present, no murmurs, rubs or gallops . RESP: no increased work of breathing, mild wheezing throughout Skin: Warm to touch, Dry. No rashes or lesions. Neuro: Moves all limbs spontaneously, bilateral tremors of the hands, ataxia of the upper extremities with finger-nose, shuffled gait Psych: (AAO) x3 . Appropriate mood and affect. Objective Labs 07/24/24 05:40 07/24/24 05:40 Labs: Laboratory Results - last 24 hr 07/24/24 05:40 WBC 6.1 RBC 4.87 Hgb 12.3 L Hct 37.0 L MCV 76 L MCH 25.3 MCHC 33.2 RDW Std Deviation 41.5 Plt Count 400 D Neut % (Auto) 59 Lymph % (Auto) 24 [place] % (Auto) 12 Eos % (Auto) 3 Baso % (Auto) 1 Neut # (Auto) 3.6 Lymph # (Auto) 1.5 [place] # (Auto) 0.8 Eos # (Auto) 0.2 Baso # (Auto) 0.0 Immature Gran # (Auto) 0.03 H Absolute Nucleated RBC 0.00 Immature Gran % 1 H Nucleated RBC % 0 Sodium 129 L Potassium 3.8 Chloride 94 L Carbon Dioxide 27.7 Anion Gap 7 BUN 13 Creatinine 0.7 Estim Creat Clear Calc 83.5 eGFR > 60 BUN/Creatinine Ratio 19 Glucose 117 H Calculated Osmolality 260 L Calcium 8.9 Corrected Calcium 8.9 Phosphorus 3.7 Magnesium 1.9 Total Bilirubin 0.7 AST 70 H ALT 90 H Alkaline Phosphatase 58 Total Protein 6.9 Albumin 4.0 Globulin 2.9 Albumin/Globulin Ratio 1.4 Quality Measures Quality Measures VTE prophylaxis Advance care planning discussed with:: other Assessment & Plan Assessment Current Active Medications: Generic Name Dose Route Start Last Admin Trade Name Freq PRN Reason Stop Dose Admin Acetaminophen 650 mg 07/21/24 17:24 Acetaminophen 325 Mg Tablet PO 08/20/24 17:23 Q6H PRN Fever >100.4 or pain Albuterol/Ipratropium 3 ml 07/21/24 17:24 07/24/24 09:29 Albuterol/Ipratropium (Duoneb) Rt Naomi 3 Ml Nebu INH 08/20/24 17:23 3 ml Q2HR PRN Administration SHORTNESS OF BREATH OR WHEEZE Amlodipine Besylate 10 mg 07/22/24 11:15 07/24/24 08:17 Amlodipine Besylate 5 Mg Tablet PO 08/21/24 11:14 10 mg QDAY BJ Administration Chlordiazepoxide HCl 25 mg 07/24/24 00:30 07/24/24 14:12 Chlordiazepoxide Hcl 25 Mg Capsule PO 07/29/24 00:29 25 mg Q8HR BJ Administration Dextrose 25 ml 07/21/24 17:45 Dextrose 50%-Water Inj 50 Ml Syringe IV 08/20/24 17:44 Q15MIN PRN BG 50-70 responsive npo pt Dextrose 50 ml 07/21/24 17:45 Dextrose 50%-Water Inj 50 Ml Syringe IV 08/20/24 17:44 Q15MIN PRN BG <50 OR BG <70 & pt unresponsive Enoxaparin Sodium 40 mg 07/22/24 09:00 07/24/24 08:18 Enoxaparin Sod Inj 40 Mg/0.4 Ml Syringe SC 08/05/24 08:59 40 mg QDAY BJ Administration Folic Acid 1 mg 07/21/24 21:00 07/24/24 08:17 Folic Acid 1 Mg Tablet PO 07/26/24 20:59 1 mg BID BJ Administration Glucagon 1 mg 07/21/24 17:45 Glucagon Inj 1 Mg Vial IM Q15MIN PRN BG <70, and no IV access Ceftriaxone Sodium/Dextrose 50 mls @ 100 mls/hr 07/22/24 09:00 07/24/24 14:12 Rocephin/D5w 1gm Iv Premix IV 07/29/24 08:59 100 mls/hr QDAY@1400 BJ Administration Influenza Virus Vaccine Quadrival 0.5 ml 07/29/24 14:30 Influenza Virus Quadrivalent 0.5 Ml Syringe IMi 07/29/24 14:31 .ONCE ONE Insulin Human Lispro 0 unit 07/22/24 07:30 07/24/24 08:21 Insulin Lispro (Admelog) 1 Unit/0.01 Ml Unit SC 08/21/24 07:29 Not Given AC ON LICENSE OF [facility] Protocol Lorazepam 0.5 mg 07/21/24 17:24 07/23/24 08:04 Lorazepam 0.5 Mg Tablet PO 07/26/24 17:23 0.5 mg Q4HR PRN Administration CIWA Score 2-6 Lorazepam 1 mg 07/21/24 17:24 07/23/24 12:14 Lorazepam 0.5 Mg Tablet PO 07/26/24 17:23 1 mg Q4HR PRN Administration CIWA SCORE 7-11 Lorazepam 2 mg 07/21/24 17:24 07/23/24 23:19 Lorazepam 0.5 Mg Tablet PO 07/26/24 17:23 2 mg Q4HR PRN Administration CIWA SCORE 12-15 Magnesium Hydroxide 30 ml 07/21/24 17:24 Milk Of Magnesia Susp 30 Ml Udc PO 08/20/24 17:23 QDAY PRN CONSTIPATION Protocol Ondansetron HCl 4 mg 07/21/24 17:24 Ondansetron Inj 2 Mg/Ml Inj 2 Ml IV 08/20/24 17:23 Q6H PRN NAUSEA OR VOMITING Protocol Pharmacy Consult 1 each 07/21/24 23:46 Pharmacy To Consult Pneumovacc XX 08/20/24 23:45 PRN PRN CONSULT Pneumococcal Polyvalent Vaccine 0.5 ml 07/29/24 08:30 Pneumoc 20-Trupti Conj-Dip Crm/Pf 0.5 Ml Syringe IMi 07/29/24 08:31 .ONCE ONE Sennosides 1 tab 07/21/24 17:24 Senna Tablet PO 08/20/24 17:23 QDAY PRN constipation Protocol Sodium Chloride 3 ml 07/21/24 11:20 Sodium Chloride Rt Naomi 0.9% 3 Ml Nebu INH 08/20/24 11:19 PRN PRN SOLN Sodium Chloride 1 gm 07/24/24 10:30 07/24/24 11:51 Sodium Chloride 1 Gm Tablet PO 08/23/24 10:29 1 gm QDAY BJ Administration Thiamine HCl 100 mg 07/21/24 21:00 07/24/24 08:18 Thiamine 100 Mg Tablet PO 07/26/24 20:59 100 mg BID BJ Administration Plan 74 y/o M with PMHx significant for asthma, diabetes, hypertension presents to the ED from home with chief complaint of progressive shortness of breath and generalized weakness x 2 weeks, admitted for symptomatic hyponatremia and UTI. #Alcohol withdrawal Patient reports drinking 3 pints of vodka daily. Last drink was 4 days ago. Tremors of the bilateral upper extremities, fasciculation of the tongue with a shuffled gait. Patient endorses previous episodes of tremors and hallucinations when he stopped drinking, denies seizures. -Telemetry -CIWA protocol -Was started on Librium every 8 hours last night, will slowly taper ?PT/OT recommending walker ?On folate 1 mg twice daily ?Thiamine 100 twice daily #Hyponatremia, symptomatic?improved The patient was found to be hyponatremic at 121 in the ED. Likely due to beer Potomania, patient endorses drinking 3 pints of vodka daily with poor food intake. Urine appears dilute. Urine sodium 31.7. Patient endorses weakness, dizziness on standing. Patient received 1 L bolus normal saline in the ED. Sodium now at 129 for the last 2 days. -Telemetry -Nephrology consulted, appreciate recommendations -Fluid restriction 1500 cc -Strict I's and O's ?Daily salt tablets #UTI, symptomatic Patient reports dysuria x 2 weeks. Patient denies fevers, chills during this time. UA showed positive leukocyte esterase, 538 WBCs. Patient leukocytosis 12.2. Patient afebrile, nonseptic. -Urine cultures from 07/22 resulted as no growth -Rocephin 1 g IV daily (started 07/21) #Asthma exacerbation-resolved ?DuoNebs as needed #DM, [id number] Patient has history of diabetes, takes metformin outpatient. A1c 6.2% as of 01/11/2024. A1c 6.5% -Carb consistent diet -ISS #HTN, patient history -Amlodipine 10 mg p.o. daily DVT prophylaxis: Lovenox GI prophylaxis: None Diet: Carb consistent, fluid restriction 1500 cc Lines: Peripheral IV Code status: Full code Plan of care discussed with senior resident Dr. Diaz PGY?[address] Hassan. Ramakrishna Cortés, PGY-1 Attending Provider Attestation/Addendum I attest that I was physically present for the evaluation, physical examination, lab and imaging review of the patient with the residents. I discussed the case with the residents and agree with the findings and plans of care as documented above. At bedside today, patient appears comfortable. He is alert and oriented, able to answer questions and follow commands appropriately. Continues to have some tremor and mild anxiety. His CIWA score this morning was 5. Patient's hyponatremia has been stable at 129, we will continue with fluid restrictions and add salt tablets. Continues to be on IV Rocephin for UTI. Patient continues to be on CIWA protocol, we will monitor closely. Rex Hassan MD
[2024-07-24] MEDS: SENNA TABLET 1 TAB PO (20:19)
[2024-07-24] MEDS: DiphenhydrAMINE ELIX 25 MG/10 ML UDC 12.5 MG PO (22:32)
[2024-07-25] VITALS (7 sets, daily range): BP systolic 112–143; BP diastolic 67–94; PULSE 81–98; RESP 16–18; TEMP 36.2–36.4; O2SAT 92–100
[2024-07-25] MEDS: BENZONATATE 100 MG CAPSULE PO ×2 (02:00→12:41)
[2024-07-25] MEDS: guaiFENesin/DM TABLET 1 EACH PO (02:00)
[2024-07-25] MEDS: chlordiazePOXIDE HCl 25 MG CAPSULE PO (05:50)
[2024-07-25 06:40] LABS: Alanine Aminotransferase 111 U/L (10-49); Albumin, Serum 4.1 gm/dL (3.4-4.8); Albumin/Globulin Ratio 1.3 (1.2-2.2); Alkaline Phosphatase 60 U/L (46-116); Anion Gap 6 (7-16); Aspartate Amino Transferase 71 U/L (0-34); BUN/Creatinine Ratio 19 Ratio (12-20); Bilirubin,Total 0.8 mg/dL (0.3-1.2); Blood Urea Nitrogen 15 mg/dL (9-23); Calcium 9.2 mg/dL (8.3-10.6); Calcium (Corrected) 9.2 mg/dL (8.5-10.1); Carbon Dioxide 25.2 mMol/L (20.0-31.0); Chloride 96 mMol/L (98-107); Creatinine (Component) 0.8 mg/dL (0.6-1.3); Estimated Creatinine Clearance 73.1 mL/min (>60); Globulin 3.1 gm/dL (2.3-3.5); Glucose 112 mg/dL (74-106); Magnesium 1.8 mg/dL (1.6-2.6); Osmolality,Calculated 257 (275-295); Phosphorous 3.6 mg/dL (2.4-5.1); Potassium 4.5 mMol/L (3.4-5.1); Sodium 127 mMol/L (136-145); Total Protein 7.2 gm/dL (5.7-8.2); eGFR > 60 See Note
[2024-07-25 07:28] LABS: Basophils % (Auto) 1 % (0-2.5); Eosinophils # (Auto) 0.3 Thou/mm3 (0.0-0.5); Eosinophils % (Auto) 4 % (0-10); Hematocrit 38.7 % (41.0-53.0); Hemoglobin 12.8 g/dL (13.5-16.0); Immature Granulocytes % (Auto) 1 % (0-0); Immature Granulocytes Auto 0.04 Thou/mm3 (0.00-0.00); Lymphocytes # (Auto) 1.5 Thou/mm3 (1.0-4.8); Lymphocytes % (Auto) 19 % (10-50); Mean Corpuscular HGB Conc 33.1 g/dl (31.0-37.0); Mean Corpuscular Hemoglobin 25.4 pg (25.0-35.0); Mean Corpuscular Volume 77 fL (80-100); Monocytes # (Auto) 0.9 Thou/mm3 (0.0-0.8); Monocytes % (Auto) 12 % (0-12); Neutrophils # (Auto) 5.1 Thou/mm3 (1.8-7.7); Neutrophils % (Auto) 64 % (37-80); Nucleated Red Blood Cell % 0 /100 WBC (0); Platelet Count 445 Thou/mm3 (140-440); RDW Standard Deviation 42.3 fL (35.1-43.9); Red Blood Count 5.04 Miln/mm3 (4.50-5.90); White Blood Count 7.9 Thou/mm3 (3.8-10.6)
[2024-07-25] MEDS: ENOXAPARIN SOD INJ 40 MG/0.4 ML SYRINGE SC (08:31)
[2024-07-25] MEDS: FOLIC ACID 1 MG TABLET PO (08:32)
[2024-07-25] MEDS: THIAMINE 100 MG TABLET PO (08:32)
[2024-07-25] MEDS: amLODIPine BESYLATE 5 MG TABLET 10 MG PO (08:32)
[2024-07-25] MEDS: SODIUM CHLORIDE 1 GM TABLET PO ×2 (08:32→08:36)
--- NOTE | 2024-07-25 08:39 | PD.RESPRO ---
Documentation for date of: 07/25/24 Subjective Subjective Interval history: Fidel Tapia is a 74-year-old gentleman with past medical history significant for diabetes, hypertension, asthma, and alcoholism who presented to the emergency department with shortness of breath and weakness x2 weeks. Patient also endorsed dysuria with associated no fever or chills. Patient apparently drinks significant amount of vodka on a daily basis. In ED, labs significant for: WBC 12.2, Na 121, osmolality 245, creatinine wnl, lactic acid 0.9, procal 0.12. UA: turbid, 19 RBC, 540 WBC, LE positive, no bacteria. Urine Na 31.7. Chest x-ray normal. Received 125 mg IV Solu-Medrol, 1 breathing treatment, Rocephin, 1 L bolus NS. Admitted for asymptomatic hyponatremia and started on 3% hypertonic saline with close monitoring of serum sodium. Overnight Na went up to 127 and night team started D5W. In AM, Na 126. Having breakfast. More alert and awake although still a little confusion noted and tremors probably from alcoholism. CIWA protocol was initiated. 07/23: Seen and examined at bedside in telemetry with present. No acute overnight events. Morning Na was 129 with fluid restriction of 1.5 L/day and strict I's and O's. No longer on IVF. Also continues to be on CIWA protocol as noted to have tremors in bilateral upper extremities and lower extremities. States that last drink was on Monday, 07/20. 07/24: Seen and examined at bedside on medical floor with present. No acute overnight events, however per , patient had a restless night. States that he was confused and attempted to pull out his lines. Last three CIWA scores were 12 and received total 6 mg lorazepam throughout night. Otherwise, Na stable at 129 on fluid restriction and recommend to continue. 07/25: Seen and examined at bedside on medical floor with present. No acute overnight events reported. Per , patient had a much more restful night compared to prior. CIWA scores have been ~5 and has not needed PRN Ativan in the last 24 hours. Primary team started salt tablets for hyponatremia and recommended to and patient to consume more salt in diet. Na 127 today, which is slightly decreased from 129 yesterday. However, can be discharged from nephrology standpoint with PO salt tablets. Exam Vital Signs Temp Pulse Resp BP Pulse Ox O2 Del Method 97.4 F 81 17 121/70 92 L Room Air 07/25/24 08:00 07/25/24 08:32 07/25/24 08:00 07/25/24 08:32 07/25/24 08:00 07/25/24 08:00 Narrative Exam General: AOx3, no acute distress, able to speak full sentences HEENT: NC/AT, mucous membranes moist, bilateral sclera anicteric Cardiovascular: regular rate and rhythm, S1/S2 present, no murmurs appreciated Pulmonary: clear to auscultation bilaterally, no rales/rhonchi/wheezes Abdominal: soft, non-tender, non-distended, no rebound/guarding, normal bowel sounds present Musculoskeletal: normal ROM, no peripheral edema Skin: warm and dry, intact, no rashes Objective Labs 07/25/24 05:55 07/25/24 05:55 Labs: Laboratory Results - last 24 hr 07/25/24 05:55 WBC 7.9 RBC 5.04 Hgb 12.8 L Hct 38.7 L MCV 77 L MCH 25.4 MCHC 33.1 RDW Std Deviation 42.3 Plt Count 445 H D Neut % (Auto) 64 Lymph % (Auto) 19 [place] % (Auto) 12 Eos % (Auto) 4 Baso % (Auto) 1 Neut # (Auto) 5.1 Lymph # (Auto) 1.5 [place] # (Auto) 0.9 H Eos # (Auto) 0.3 Baso # (Auto) 0.0 Immature Gran # (Auto) 0.04 H Absolute Nucleated RBC 0.00 Immature Gran % 1 H Nucleated RBC % 0 Sodium 127 L Potassium 4.5 D Chloride 96 L Carbon Dioxide 25.2 Anion Gap 6 L BUN 15 Creatinine 0.8 Estim Creat Clear Calc 73.1 eGFR > 60 BUN/Creatinine Ratio 19 Glucose 112 H Calculated Osmolality 257 L Calcium 9.2 Corrected Calcium 9.2 Phosphorus 3.6 Magnesium 1.8 Total Bilirubin 0.8 AST 71 H ALT 111 H Alkaline Phosphatase 60 Total Protein 7.2 Albumin 4.1 Globulin 3.1 Albumin/Globulin Ratio 1.3 Quality Measures Quality Measures VTE prophylaxis Advance care planning discussed with:: patient and spouse Assessment & Plan Assessment Current Active Medications: Generic Name Dose Route Start Last Admin Trade Name Freq PRN Reason Stop Dose Admin Acetaminophen 650 mg 07/21/24 17:24 Acetaminophen 325 Mg Tablet PO 08/20/24 17:23 Q6H PRN Fever >100.4 or pain Albuterol/Ipratropium 3 ml 07/21/24 17:24 07/24/24 09:29 Albuterol/Ipratropium (Duoneb) Rt Naomi 3 Ml Nebu INH 08/20/24 17:23 3 ml Q2HR PRN Administration SHORTNESS OF BREATH OR WHEEZE Amlodipine Besylate 10 mg 07/22/24 11:15 07/25/24 08:32 Amlodipine Besylate 5 Mg Tablet PO 08/21/24 11:14 10 mg QDAY BJ Administration Chlordiazepoxide HCl 25 mg 07/24/24 00:30 07/25/24 05:50 Chlordiazepoxide Hcl 25 Mg Capsule PO 07/29/24 00:29 25 mg Q8HR BJ Administration Dextrose 25 ml 07/21/24 17:45 Dextrose 50%-Water Inj 50 Ml Syringe IV 08/20/24 17:44 Q15MIN PRN BG 50-70 responsive npo pt Dextrose 50 ml 07/21/24 17:45 Dextrose 50%-Water Inj 50 Ml Syringe IV 08/20/24 17:44 Q15MIN PRN BG <50 OR BG <70 & pt unresponsive Enoxaparin Sodium 40 mg 07/22/24 09:00 07/25/24 08:31 Enoxaparin Sod Inj 40 Mg/0.4 Ml Syringe SC 08/05/24 08:59 40 mg QDAY BJ Administration Folic Acid 1 mg 07/21/24 21:00 07/25/24 08:32 Folic Acid 1 Mg Tablet PO 07/26/24 20:59 1 mg BID BJ Administration Glucagon 1 mg 07/21/24 17:45 Glucagon Inj 1 Mg Vial IM Q15MIN PRN BG <70, and no IV access Ceftriaxone Sodium/Dextrose 50 mls @ 100 mls/hr 07/22/24 09:00 07/24/24 14:12 Rocephin/D5w 1gm Iv Premix IV 07/29/24 08:59 100 mls/hr QDAY@1400 BJ Administration Influenza Virus Vaccine Quadrival 0.5 ml 07/29/24 14:30 Influenza Virus Quadrivalent 0.5 Ml Syringe IMi 07/29/24 14:31 .ONCE ONE Insulin Human Lispro 0 unit 07/22/24 07:30 07/24/24 17:43 Insulin Lispro (Admelog) 1 Unit/0.01 Ml Unit SC 08/21/24 07:29 Not Given AC BJ Protocol Lorazepam 0.5 mg 07/21/24 17:24 07/23/24 08:04 Lorazepam 0.5 Mg Tablet PO 07/29/24 17:23 0.5 mg Q4HR PRN Administration CIWA Score 2-6 Lorazepam 1 mg 07/21/24 17:24 07/23/24 12:14 Lorazepam 0.5 Mg Tablet PO 07/29/24 17:23 1 mg Q4HR PRN Administration CIWA SCORE 7-11 Lorazepam 2 mg 07/21/24 17:24 07/23/24 23:19 Lorazepam 0.5 Mg Tablet PO 07/29/24 17:23 2 mg Q4HR PRN Administration CIWA SCORE 12-15 Magnesium Hydroxide 30 ml 07/21/24 17:24 Milk Of Magnesia Susp 30 Ml Udc PO 08/20/24 17:23 QDAY PRN CONSTIPATION Protocol Ondansetron HCl 4 mg 07/21/24 17:24 Ondansetron Inj 2 Mg/Ml Inj 2 Ml IV 08/20/24 17:23 Q6H PRN NAUSEA OR VOMITING Protocol Pharmacy Consult 1 each 07/21/24 23:46 Pharmacy To Consult Pneumovacc XX 08/20/24 23:45 PRN PRN CONSULT Pneumococcal Polyvalent Vaccine 0.5 ml 07/29/24 08:30 Pneumoc 20-Trupti Conj-Dip Crm/Pf 0.5 Ml Syringe IMi 07/29/24 08:31 .ONCE ONE Sennosides 1 tab 07/21/24 17:24 07/24/24 20:19 Senna Tablet PO 08/20/24 17:23 1 tab QDAY PRN Administration constipation Protocol Sodium Chloride 3 ml 07/21/24 11:20 Sodium Chloride Rt Naomi 0.9% 3 Ml Nebu INH 08/20/24 11:19 PRN PRN SOLN Sodium Chloride 1 gm 07/24/24 10:30 07/25/24 08:36 Sodium Chloride 1 Gm Tablet PO 08/23/24 10:29 1 gm QDAY BJ Administration Thiamine HCl 100 mg 07/21/24 21:00 07/25/24 08:32 Thiamine 100 Mg Tablet PO 07/26/24 20:59 100 mg BID BJ Administration Plan Fidel Tapia is a 74-year-old gentleman with past medical history significant for diabetes, hypertension, asthma, and alcoholism who was admitted for severe hyponatremia and nephrology consulted for same. #Hypoosmolar hyponatremia, suspect Beer potomania Na 121 and serum osm 245 on admission, currently stable at 127 while on fluid restriction and now salt tablets. Still pending urine osmolality. Urine Na 31 wnl. Per , patient does not consume very much protein in his diet, which otherwise consists of significant amount of carbohydrates and alcohol. Given that Na has improved, recommend to continue with fluid restriction and consider oral salt tablets if refractory. ? Continue with fluid restriction ? Agree with salt tablets ? Advised to consume more balanced diet and abstinence from alcohol #Asthma exacerbation #Alcohol use #Alcohol withdrawal #Urinary tract infection #Generalized weakness #Type 2 diabetes mellitus #Hypertension ? Continue management per primary team ----- Plan discussed with attending physician Dr. Kenneth Douglas MD PGY-1 Internal Medicine Attending Provider Attestation/Addendum Patient seen and examined with resident physician Dr. Irizarry. Note reviewed, agree with findings and recommendations. Patient currently seen in medical floor. at bedside. Patient more alert and awake and was back to his self. Still going through alcohol withdrawal. Sodium 127. Recommended team to discharge him on salt tablet and 3 days of Librium. He can follow-up with me in the outpatient setting. Renal gipson stable for discharge.
--- NOTE | 2024-07-25 09:31 | PC.SS ---
SS update: plan is to d/c the patient home today.
--- NOTE | 2024-07-25 12:30 | PC.SS ---
Walkers The diagnosis creates mobility limitation that significantly impairs ability to participate in the patients activities of daily living either in their entirety, or in a reasonable time frame. Also the patient is able to safely use the walker and the patient?s mobility is sufficiently resolved with the use of the walker and cane has been ruled out.
[2024-07-25] MEDS: INSULIN LISPRO (AdmeLOG) 1 UNIT/0.01 ML UNIT SC (12:44)
--- NOTE | 2024-07-25 15:18 | ESDS_ITS ---
<Statement entered by Dylan Diaz MD - 07/25/24 15:24> I saw and examined the patient, and I agree with current management stated by Dr Moo MD,PGY1. Plan of care was discussed with the attending physician and resident physician. Disclaimer: Despite multiple revisions, due to the dictation software being used, the document bellow may not be free of grammatical errors including phonetic/typographic errors. However, this does not deter from our commitment to providing health care in the patient's best interest in mind. Dr. Joe MD, PGY 2 Planned Discharge Date 07/25/24 DS: Providers Provider Date of admission: 07/21/24 17:24 Primary care physician: Aleah Hester PA-C Admitting Provider: Dmitriy Grant MD Attending Provider on Admission: Dmitriy Grant MD Consults: 07/21/24 17:24 Referral Physical Therapy Routine Comment: Physician Instructions: 07/21/24 17:27 Consult to Nephrology Routine Comment: Consulting Provider: Anna Cooper 07/21/24 23:48 Referral Occupational Therapy Routine Comment: Referral Registered Dietitian Routine Comment: Health Equity Referral - Knowledge Deficit Routine Comment: Positive screening for knowledge deficit needs. Attending Provider on DC: Rex Gregory MD Discharging Provider: Ramakrishna Cortés DO DS: Diagnosis Problem List Completed Was Problem List Reviewed/Reconciled?: Yes Hospital Course Hospital Course Hospital course: Discharge summary: 74 y/o M with PMHx significant for asthma, diabetes, hypertension presents to the ED from home with chief complaint of progressive shortness of breath and generalized weakness x 2 weeks, admitted for symptomatic hyponatremia and UTI and went into alcohol withdrawals during admission. Initial sodium of 121, nephrology was consulted and patient was treated using fluid restriction, hypertonic saline and daily salt tablets. Most likely due to beer [place]. Patient endorses drinking 3 pints of vodka daily with poor food intake. UTI was treated with ceftriaxone in the hospital and patient was discharged on Keflex. During his stay he developed alcohol withdrawal, was placed on CIWA protocol and treated with as needed Ativan and Librium. On day 5 of alcohol withdrawals had improved, patient was still having some fasciculations of the tongue and upper extremity tremors. He was discharged on a tapered course of Librium and was counseled aggressively to stop drinking. Side effects of drinking and taking Librium were discussed including respiratory depression and/or . Patient discharged. Discharge instructions: Continue thiamine and folic acid We started sodium chloride/salt tab 1 g once daily Take Librium 25mg three times a day for day 1 Take Librium 25 mg two times a day for day 2 Take Librium 25 mg once a day for day 3 and stop taking it Recommended to stop drinking alcohol Take amlodipine 10 mg once daily and we stopped your benazepril due to hyponatremia Advised to stop drinking alcohol and using amphetamines Follow-up with PCP as outpatient within 2 weeks In case of emergency, call 911 or come back to the ED Discharge Diagnoses: #Alcohol withdrawal #Hyponatremia, symptomatic?improved #UTI, symptomatic #Asthma exacerbation-resolved #DM, [id number] #HTN, patient history Plan of care discussed with senior resident Dr. Diaz PGY?[address] Hassan. Ramakrishna Cortés, PGY-1 Time Spent with Patient Time attestation: Total time spent providing and/or coordinating discharge services: Exam Vital Signs Temp Pulse Resp BP Pulse Ox O2 Del Method 97.2 F 92 17 112/90 H 98 Room Air 07/25/24 12:00 07/25/24 12:07/25/24 12:07/25/24 12:07/25/24 12:07/25/24 12:00 Narrative Exam Constitutional: Not in acute distress, well-appearing Head: Normocephalic/Atraumatic, large melanocytic mole in the center of his forehead with a irregular borders Eyes: no conjunctival injection , symmetrical lids. ENMT: Moist Mucous Membranes, fasciculations of the tongue CVS: RRR, S1 and S2 present, no murmurs, rubs or gallops . RESP: no increased work of breathing Skin: Warm to touch, Dry. No rashes or lesions. Neuro: Moves all limbs spontaneously, continues to have bilateral tremors of the hands Psych: (AAO) x3 . Appropriate mood and affect. Discharge Plan Plan Patient Disposition: HOME (Self Care) Patient condition on transfer: Stable Care Plan Goals: Continue thiamine and folic acid We started sodium chloride/salt tab 1 g once daily Take Librium 25mg three times a day for day 1 Take Librium 25 mg two times a day for day 2 Take Librium 25 mg once a day for day 3 and stop taking it Recommended to stop drinking alcohol Take amlodipine 10 mg once daily and we stopped your benazepril due to hyponatremia Advised to stop drinking alcohol and using amphetamines Follow-up with PCP as outpatient within 2 weeks In case of emergency, call 911 or come back to the ED Prescriptions/Referrals Prescriptions/Med Rec: New amlodipine 10 mg tablet 10 mg PO QDAY 30 Days Qty: 30 0RF folic acid 1 mg Tablet 1 mg PO BID 30 Days Qty: 60 0RF thiamine mononitrate (vit B1) 100 mg Tablet 100 mg PO BID 30 Days Qty: 60 0RF cephalexin 500 mg capsule 500 mg PO BID 4 Days Qty: 8 0RF sodium chloride 1,000 mg tablet,soluble 1,000 mg PO QDAY Qty: 60 0RF chlordiazepoxide HCl 25 mg capsule 25 mg PO TID 3 Days Qty: 9 0RF Rx Instructions: Take Librium 25mg three times a day for day 1 Take Librium 25 mg two times a day for day 2 Take Librium 25 mg once a day for day 3 and stop taking it Recommended to stop drinking alcohol multivitamin Tablet 1 tab PO QAM Qty: 30 0RF benzonatate 100 mg capsule 100 mg PO BID PRN (Reason: cough) Qty: 14 0RF Continued omeprazole 40 mg Capsule,Delayed Release(Dr/Ec) 40 mg PO QDAY metformin 1,000 mg Tablet Extended Release 24 Hr 1,000 mg PO QDAY budesonide-formoterol [Symbicort] 160-4.5 mcg/actuation Hfa Aerosol Inhaler 1 puff INHALATION BID Discontinued benazepril 10 mg Tablet 10 mg PO DAILY Referrals: Aleah Hester PA-C [Primary Care Provider] - Anna Cooper MD [Physician] - Patient/Caregiver Discharge Instructions Education Materials: Alcohol Abuse Life After Combat, Diabetes: Inspecting Your Feet, Diabetes: Caring for Your Body, Alcoholism: Getting Help, Alcohol Addiction, Addiction Ask These Questions, Addiction: Getting Help, Addiction: Your Treatment Options, Addiction Recovery Counseling, Diabetes Carbs Fats Protein Print Language: Georgian Stand Alone Forms: [facility] Award Info., Patient Portal Info Letter Discharge Order Discharge Orders: Discharge (Routine); Ordered 07/25/24 Ordered By: Dylan Diaz Quality Discharge Quality Measures VTE prophylaxis MD Corina RODRÍGUEZ Attestation I attest that I was physically present for the evaluation, physical examination, lab and imaging review of the patient with the residents. I discussed the case with the residents and agree with the findings and plans of care as documented above. At bedside today, patient appears more calm. Only symptoms that is remaining from his alcohol withdrawal are the tremors. Patient is already on day 5 for his alcohol withdrawal. We will discharge him on tapered dose of Librium for 3 more days. Patient counseled extensively that he should stop drinking especially while he is on Librium. Also counseled against driving while he is on Librium. We will continue with thiamine, folate and multivitamins. Recommended to follow-up with PCP in 1 to 2 weeks of discharge. Rex Hassan MD
--- NOTE | 2024-07-25 16:12 | PC.SS ---
SS follow up: DME referral was sent via [employer] for [facility]. DME vendor to follow up with patient to deliver DME.
[2024-07-29 06:47] LABS: Osmolality, Serum* 273 mOsm/kg (278-305); Osmolality, Urine* 166 mOsm/kg (50-1200)
== END 2024-07-25 13:20 | disposition home or self-care (01) | DRG 641 ==
LOC: SERX 17:14 → SERHOLD 17:49 → S2SX 07-22 06:43 → S3NX 07-23 08:11 → S2SX 07-25 07:49
PROVIDERS: Nurse Practitioner Primary Care; Student in an Organized Health Care Education/Training Program; Admitting Provider Student in an Organized Health Care Education/Training Program; Emergency Provider Emergency Medicine; PCP Physician Assistant; Visit Provider Student in an Organized Health Care Education/Training Program
DX: E87.1 Hypo-osmolality and hyponatremia (principal); N39.0 Urinary tract infection, site not specified; J44.1 Chronic obstructive pulmonary disease with (acute) exacerbation; F10.239 Alcohol dependence with withdrawal, unspecified; J45.901 Unspecified asthma with (acute) exacerbation; R44.3 Hallucinations, unspecified; F41.9 Anxiety disorder, unspecified; K21.9 Gastro-esophageal reflux disease without esophagitis; G25.81 Restless legs syndrome; E11.9 Type 2 diabetes mellitus without complications; R27.0 Ataxia, unspecified; I10 Essential (primary) hypertension; Z87.891 Personal history of nicotine dependence; Z11.52 Encounter for screening for COVID-19; Z79.899 Other long term (current) drug therapy; Z79.84 Long term (current) use of oral hypoglycemic drugs
CPT/HCPCS: 36415; 71046; 80053; 80061; 80307; 81001; 83036; 83605; 83735; 83930; 83935; 84100; 84145; 84295; 84300; 84436; 84443; 84484; 85025; 87040; 87077; 87086; 87186; 87400; 87811; 93005; 93225; 94640; 94644; 94664; 96361; 96365; 96375; 97162; 99285; A9270; J0696; J1650; J1815; J2060; J2919; J3475; J7030; J7042; J7131

== ENCOUNTER 2024-12-12 03:01 | Emergency (ER) | payer MEDICARE, MEDICAID, SELFPAY ==
[2024-12-12 03:03] VITALS: BMI 27.7
[2024-12-12 03:23] VITALS: BP 164/94; PULSE 90; RESP 18; TEMP 36.9; O2SAT 97
[2024-12-12] MEDS: LORazepam 0.5 MG TABLET 2 MG PO (03:59)
[2024-12-12 04:58] VITALS: BP 177/100; PULSE 88; RESP 17; TEMP 37.1; O2SAT 98
--- NOTE | 2024-12-12 05:27 | PD.EDALCOH ---
ED Alcohol RME/HPI General Chief Complaint: Extremity Problem,Nontraumatic Stated Complaint: BLE PAIN AND NAUSEA Time Seen by Provider: 12/12/24 03:34 Arrival date/time: 12/12/24 03:01 74M with history of DM and alcohol abuse presents to ED with generalized body shakiness and N/V. Patient denies fall/trauma and dysuria/hematuria. Limitations: no limitations Related Data Home Medications ?Medication ?Instructions ?Recorded ?Confirmed metformin 1,000 mg tablet,extended 1,000 mg PO QDAY 07/27/22 07/22/24 release 24hr (osmotic) omeprazole 40 mg capsule,delayed 40 mg PO QDAY 07/27/22 07/22/24 release budesonide-formoterol HFA 160 1 puff inhalation BID 04/21/23 07/22/24 mcg-4.5 mcg/actuation aerosol inhaler (Symbicort) Previous Rx's ?Medication ?Instructions ?Recorded benzonatate 100 mg capsule 100 mg PO BID PRN cough #14 caps 07/25/24 multivitamin 1 tab PO QAM #30 tabs 07/25/24 sodium chloride 1,000 mg soluble 1,000 mg PO QDAY #60 tabs 07/25/24 tablet Allergies Allergy/AdvReac Type Severity Reaction Status Date / Time No Known Allergies Allergy Verified 12/12/24 03:02 Review of Systems Review of Systems Systems Reviewed: All systems reviewed, normal except as documented Constitutional Constitutional: Reports system reviewed and no additional complaints, except as documented, Denies fever(s) and Denies headache(s) ENT Ears, Nose, Mouth, and Throat: Denies disequilibrium and Denies headache(s) Cardiovascular Cardiovascular: Reports system reviewed and no additional complaints, except as documented, Denies chest pain and Denies dyspnea Respiratory Respiratory: Reports system reviewed and no additional complaints, except as documented, Denies cough and Denies dyspnea Gastrointestinal Gastrointestinal: Reports system reviewed and no additional complaints, except as documented, Denies abdominal pain, Denies nausea and Denies vomiting Neurologic Neurologic: Reports system reviewed and no additional complaints, except as documented, Reports as per HPI, Denies confusion, Denies disequilibrium, Denies headache(s) and Reports tremor(s) Psychiatric Psychiatric: Reports as per HPI, Reports anxiety and Denies confusion Past Medical History Past Medical History NEUROLOGIC: Negative Neurological Disorders or Seizures CARDIAC: Positive Cardiac Disorders, Hypertension and Varicose Veins; Negative Congestive Heart Failure RESPIRATORY: Positive Asthma, Bronchitis and Pneumonia; Negative Chronic Obstructive Pulmonary Disease (COPD) GASTROINTESTINAL: Positive Gastrointestinal Disorders, Gastroesophageal Reflux Disease and Obesity GENITOURINARY: Negative Genitourinary Disorders or Renal Disease MUSCULOSKELETAL: Positive Fractures; Negative Musculoskeletal Disorders ENT: Positive Cataracts ENDOCRINE: Positive Endocrine Disorders and Diabetes Mellitus Type 2; Negative Diabetes Mellitus Type 1 HEMATOLOGIC: Negative Blood Disorders PSYCHO/SOCIAL: Positive Depression and Anxiety OTHER HISTORY: Positive Hospitalization, Chicken Pox, Measles and Mumps; Negative Autoimmune Disease, Shingles, Blood Transfusions, Blood Transfusion Reaction, Anesthesia Reactions, Organ Transplant, MRSA or Cancer Family History FAMILY HISTORY: Positive Family Cardiac Disorders and Family Surgery; Negative Family Psychiatric Problems, Family Respiratory Disorders, Family Gastrointestinal Problems, Family Cancer or Family Anesthesia Reaction Surgical History SURGICAL: Positive Abdominal Surgery; Negative Cardiac Surgery, Endocrine Surgery, Ear Surgery, Nephrectomy, Joint Replacement, Neurologic Surgery, Mastectomy or Organ Transplant Social History SMOKING STATUS: Never smoker ED Exam General Limitations: Present no limitations General appearance: Present alert, in no apparent distress and anxious Head Head exam: Present atraumatic Eye Eye exam: Present normal appearance, PERRL and EOMI ENT ENT exam: Present normal exam, normal oropharynx and mucous membranes moist Neck Neck exam: Present normal inspection, full ROM and trachea midline Chest Chest inspection: Present normal inspection and symmetric chest wall rise Respiratory Respiratory exam: Present normal lung sounds bilaterally Cardiovascular Cardiovascular exam: Present regular rate, normal rhythm and normal heart sounds Abdominal Exam Abdominal exam: Present soft and normal bowel sounds Extremities Exam Extremities exam: Present normal inspection and full ROM Back Exam Back exam: Present normal inspection and full ROM Neurological Exam Neurological exam: Present alert, oriented X3 and CN II-XII intact Psychiatric Psychiatric exam: Present normal affect and normal mood Skin Skin exam: Present warm, dry, intact and normal color Course Quality Measures none Orders Category Date Time Status LORazepam [Ativan] Med 12/12/24 03:35 Discontinued 2 mg PO X1 ONE Vital Signs Vital signs: Vital Signs Temperature 98.4 F 12/12/24 03:23 Pulse Rate 90 12/12/24 03:23 Respiratory Rate 18 12/12/24 03:23 Blood Pressure 164/94 H 12/12/24 03:23 Pulse Oximetry (%) 97 12/12/24 03:23 Oxygen Delivery Method Room Air 12/12/24 03:23 O2 at 97% on RA and WNLs Discharge Plan Plan Patient Disposition: HOME (Self Care) Discharge Disposition comment: Stable Prescriptions/Referrals Prescriptions/Med Rec: No Action omeprazole 40 mg Capsule,Delayed Release(Dr/Ec) 40 mg PO QDAY metformin 1,000 mg Tablet Extended Release 24 Hr 1,000 mg PO QDAY budesonide-formoterol [Symbicort] 160-4.5 mcg/actuation Hfa Aerosol Inhaler 1 puff INHALATION BID sodium chloride 1,000 mg tablet,soluble 1,000 mg PO QDAY Qty: 60 0RF multivitamin Tablet 1 tab PO QAM Qty: 30 0RF benzonatate 100 mg capsule 100 mg PO BID PRN (Reason: cough) Qty: 14 0RF Referrals: Jonathan Nascimento MD [Primary Care Provider] - In 1 week Problem List Clinical Impression: Alcohol withdrawal Patient/Caregiver Discharge Instructions Education Materials: Alcohol Withdrawal: What to Expect Additional Instructions: Please follow-up with PCP within 24-48 hours and return immediately if symptoms worsen. Print Language: Chilean Stand Alone Forms: Patient Portal Info Letter PA/PAGE Supervising Physician PA/PAGE Supervising Physician: Dr. Joyner Alcohol MDM Narrative MDM Narrative: 74M with history of DM and alcohol abuse presents to ED with generalized body shakiness and N/V. Patient denies fall/trauma and dysuria/hematuria. Physical exam reveals some tremors. Normal pupil response and EOM. Gait normal. Speech somewhat pressured. Patient is afebrile, alert, but anxious. Meds improved symptoms. Patient data External records reviewed:: [facility] previous records Clinical information provided by:: patient Social determinants that could affect healthcare access:: alcohol use Patient has the following chronic illnesses:: alcohol use and DM How is presenting disease/condition affected by chronic disease/condition?: caused by Evaluation data The following diagnostics were reviewed and interpreted by me:: other (specify) (none) Lab and/or radiology exams considered but not ordered:: not ordered Interpretation Summary: n/a Medications / Prescriptions Medications or Prescriptions considered but not ordered:: ordered Medication administrations:: Medication Administration History Discontinued Medications Lorazepam (Lorazepam 0.5 Mg Tablet) 2 mg PO X1 ONE Stop: 12/12/24 03:36 Last Admin: 12/12/24 03:59 Dose: 2 mg Documented By: MC above Consultations Consultation(s) initiated? (list below): No Diagnosis Differential diagnosis alcohol: alcohol withdrawal delirium, hypomagnesemia, alcohol intoxication, alcohol ketoacidosis, alcohol withdrawal syndrome and alcohol withdrawal seizure Most likely diagnosis given after review of the tests above:: alcohol withdrawal Admission Indicated Admission indicated?: not indicated Admission Request Was there a request for admission?: No Disposition Plan Disposition Plan: Discharge Discharge Attestation Discharge Attestation: The patient and all family members were given an opportunity to ask questions and understood the discharge instructions. Discharge instructions specifically effects, indications for sooner follow up or return to the emergency department, and the expected course of current diagnosis. Patient condition: Stable
== END 2024-12-12 05:03 | disposition home or self-care (01) ==
PROVIDERS: Emergency Provider Emergency Medicine; PCP Student in an Organized Health Care Education/Training Program
DX: F10.239 Alcohol dependence with withdrawal, unspecified (principal); Y90.9 Presence of alcohol in blood, level not specified
CPT/HCPCS: 99282; A9270

== ENCOUNTER 2024-12-12 12:29 | Emergency (ER) | payer MEDICARE, MEDICAID, SELFPAY ==
[2024-12-12 12:53] VITALS: BP 179/97; PULSE 89; RESP 17; TEMP 37.1; O2SAT 98; BMI 29.1
[2024-12-12 13:04] VITALS: O2SAT 95
--- NOTE | 2024-12-12 13:07 | XR_ITS ---
Examination: Lumbar spine 3 views Technique one AP lateral coned lateral lower lumbar spine 3 views Date and time: December 12, 2024 1342 hours INDICATIONS: Low back pain radiating down both legs 3 days FINDINGS: Grade 1 anterolisthesis L4 on L5 No lumbar fracture No significant lumbar disc narrowing Mild lumbar spondylosis IMPRESSION: No lumbar fracture No significant lumbar disc narrowing
--- NOTE | 2024-12-12 13:34 | PC.NURSE ---
Multi-vit PO order cancelled by provider Yoseph new order for Folic Acid 1mg PO x1 now and Thiamine 100mg PO x1 now. Pharmacy aware.
--- NOTE | 2024-12-12 13:38 | PD.EDEXREM ---
ED Extremity Problem RME/HPI General Chief complaint: Extremity Problem,Nontraumatic Stated complaint: Leg pain, anxiety Time Seen by Provider: 12/12/24 12:30 Arrival date/time: 12/12/24 12:29 Mode of arrival: ambulatory Limitations: language barrier RME / HPI RME / HPI Narrative: 74-year-old male with past medical history of alcohol misuse, COPD, diabetes presents for evaluation of low back pain x 4 days. He describes it as sharp with radiation down his bilateral posterior thighs. Patient denies bladder and bowel incontinence, fever, chills, weakness, numbness, tingling. Denies history of back trauma. Patient also notes increased anxiety which he attributes to his alcohol use. Patient's reports he drinks approximately a bottle of hard liquor daily. Patient notes that his last drink was this morning. Patient reports that he is being followed outpatient by his primary care doctor for alcohol misuse and was recently prescribed benzodiazepine. Patient denies auditory and visual hallucinations. MD Complaint: extremity pain Onset (ago): day(s) Consistency: intermittent Relieving factors: nothing Exacerbating factors: nothing Associated symptoms: denies other symptoms Related Data Home Medications ?Medication ?Instructions ?Recorded ?Confirmed metformin 1,000 mg tablet,extended 1,000 mg PO QDAY 07/27/22 07/22/24 release 24hr (osmotic) omeprazole 40 mg capsule,delayed 40 mg PO QDAY 07/27/22 07/22/24 release budesonide-formoterol HFA 160 1 puff inhalation BID 04/21/23 07/22/24 mcg-4.5 mcg/actuation aerosol inhaler (Symbicort) Previous Rx's ?Medication ?Instructions ?Recorded benzonatate 100 mg capsule 100 mg PO BID PRN cough #14 caps 07/25/24 multivitamin 1 tab PO QAM #30 tabs 07/25/24 sodium chloride 1,000 mg soluble 1,000 mg PO QDAY #60 tabs 07/25/24 tablet ibuprofen 600 mg tablet 600 mg PO Q8H PRN back pain #14 12/12/24 tabs multivitamin (Daily Multi-Vitamin 1 tab PO QDAY #30 tabs 12/12/24 tablet) Allergies Allergy/AdvReac Type Severity Reaction Status Date / Time No Known Allergies Allergy Verified 12/12/24 12:34 Review of Systems Review of Systems Narrative Review of Systems: Per patient and patient's . Constitutional Constitutional: Denies body ache(s), Denies chills, Denies excessive sweating, Denies fever(s), Denies frequent falls, Denies headache(s) and Denies weakness Eyes Eyes: Denies blurry vision, Denies change in vision and Denies loss of vision ENT Ears, Nose, Mouth, and Throat: Denies dizziness, Denies headache(s) and Denies neck pain Cardiovascular Cardiovascular: Denies chest pain, Denies dyspnea and Denies lightheadedness Respiratory Respiratory: Denies cough, Denies dyspnea and Denies wheezing Gastrointestinal Gastrointestinal: Denies abdominal pain, Denies diarrhea and Denies nausea Genitourinary Genitourinary: Denies flank pain and Denies hematuria Musculoskeletal Musculoskeletal: Denies back pain, Denies muscle weakness, Denies neck pain, Denies numbness, Denies stiffness and Denies tingling Integumentary/Breasts Skin/Breast: Denies lesions and Denies rash Neurologic Neurologic: Denies abnormal speech, Denies behavioral changes, Denies confusion, Denies convulsions, Denies dizziness, Denies localized weakness, Denies frequent falls, Denies headache(s), Denies lack of coordination, Denies loss of vision, Denies memory loss, Denies numbness, Denies other visual disturbances, Denies seizure-like activity, Denies tingling, Reports tremor(s) (pt's reports upper extremity tremor at baseline x6 months. ) and Denies weakness Psychiatric Psychiatric: Reports anxiety, Denies behavioral changes, Denies confusion, Denies memory loss, Denies tactile hallucinations and Denies visual hallucinations Endocrine Endocrine: Denies excessive sweating Allergic/Immunologic Allergic/Immunologic: Denies wheezing Past Medical History Past Medical History NEUROLOGIC: Negative Neurological Disorders or Seizures CARDIAC: Positive Cardiac Disorders, Hypertension and Varicose Veins; Negative Congestive Heart Failure RESPIRATORY: Positive Asthma, Bronchitis and Pneumonia; Negative Chronic Obstructive Pulmonary Disease (COPD) GASTROINTESTINAL: Positive Gastrointestinal Disorders, Gastroesophageal Reflux Disease and Obesity GENITOURINARY: Negative Genitourinary Disorders or Renal Disease MUSCULOSKELETAL: Positive Fractures; Negative Musculoskeletal Disorders ENT: Positive Cataracts ENDOCRINE: Positive Endocrine Disorders and Diabetes Mellitus Type 2; Negative Diabetes Mellitus Type 1 HEMATOLOGIC: Negative Blood Disorders PSYCHO/SOCIAL: Positive Depression and Anxiety OTHER HISTORY: Positive Hospitalization, Chicken Pox, Measles and Mumps; Negative Autoimmune Disease, Shingles, Blood Transfusions, Blood Transfusion Reaction, Anesthesia Reactions, Organ Transplant, MRSA or Cancer Family History FAMILY HISTORY: Positive Family Cardiac Disorders and Family Surgery; Negative Family Psychiatric Problems, Family Respiratory Disorders, Family Gastrointestinal Problems, Family Cancer or Family Anesthesia Reaction Surgical History SURGICAL: Positive Abdominal Surgery; Negative Cardiac Surgery, Endocrine Surgery, Ear Surgery, Nephrectomy, Joint Replacement, Neurologic Surgery, Mastectomy or Organ Transplant Social History SMOKING STATUS: Former smoker ED Exam General Limitations: Present language barrier Course Quality Measures none Orders Category Date Time Status XR lumbar spine 2-3V Stat Exams 12/12/24 13:07 Completed Folic Acid Med 12/12/24 13:32 Discontinued 1 mg PO X1 ONE LORazepam [Ativan] Med 12/12/24 13:07 Discontinued 1 mg PO X1 ONE Multivitamin. Med 12/12/24 13:07 Discontinued 15 ml PO X1 ONE Thiamine [Vitamin B-1] Med 12/12/24 13:33 Discontinued 100 mg PO X1 ONE Vital Signs Vital signs: Vital Signs Temperature 98.8 F 12/12/24 12:53 Pulse Rate 89 12/12/24 12:53 Respiratory Rate 17 12/12/24 12:53 Blood Pressure 179/97 H 12/12/24 12:53 Pulse Oximetry (%) 98 12/12/24 12:53 Pulse ox 98% on room air, within normal limits. Extremity Problem MDM Narrative MDM Narrative:: 74-year-old male brought in by for evaluation of anxiety and acute low back pain. Patient was recently seen by primary care and diagnosed with benzos for possible alcohol withdrawal. Patient reported last drink this morning. X-ray of low back was performed which showed no acute fracture or dislocation. Ultimately the patient was given a dose of benzo and folic acid and thiamine for possible alcohol withdrawal. He was discharged home with plan for close outpatient follow-up with primary care within the next 24 to 48 hours. I stressed to his that she needs to bring him back if his symptoms worsen or change. She expressed understanding of this plan and was given the opportunity to ask questions. Patient data External records reviewed:: [facility] previous records Clinical information provided by:: patient Social determinants that could affect healthcare access:: none Patient has the following chronic illnesses:: Alcohol misuse, diabetes, GERD How is presenting disease/condition affected by chronic disease/condition?: exacerbated by Evaluation data The following diagnostics were reviewed and interpreted by me:: radiology exam(s) Lab and/or radiology exams considered but not ordered:: Labs considered not ordered. Interpretation Summary: Lumbar x-ray showed no acute fracture or gross dislocation. Moderate degenerative disc disease. Medications / Prescriptions Medications or Prescriptions considered but not ordered:: Rx given. Medication administrations:: Medication Administration History Discontinued Medications Folic Acid (Folic Acid 1 Mg Tablet) 1 mg PO X1 ONE Stop: 12/12/24 13:33 Last Admin: 12/12/24 13:54 Dose: 1 mg Documented By: Lorazepam (Lorazepam 0.5 Mg Tablet) 1 mg PO X1 ONE Stop: 12/12/24 13:08 Last Admin: 12/12/24 13:54 Dose: 1 mg Documented By: Multivitamins/Minerals (Multivitamin 15 Ml Udc) 15 ml PO X1 ONE Stop: 12/12/24 13:08 Last Admin: 12/12/24 13:56 Dose: Not Given Documented By: Non-Admin Reason: Cancelled by Provider Thiamine HCl (Thiamine 100 Mg Tablet) 100 mg PO X1 ONE Stop: 12/12/24 13:34 Last Admin: 12/12/24 13:54 Dose: 100 mg Documented By: Rx given. Consultations Consultation(s) initiated? (list below): No Diagnosis Extremity Problem Differential Diagnosis: other (Sciatica, lumbar back fracture, alcohol withdrawal, cauda equina.) Most likely diagnosis given after review of the tests above:: Acute low back pain, tremor. Admission Indicated Admission indicated?: not indicated Admission Request Was there a request for admission?: No Disposition Plan Disposition Plan: Discharge Discharge Attestation Discharge Attestation: The patient and all family members were given an opportunity to ask questions and understood the discharge instructions. Discharge instructions specifically effects, indications for sooner follow up or return to the emergency department, and the expected course of current diagnosis. Patient condition: Stable Discharge Plan Plan Patient Disposition: HOME (Self Care) Discharge Disposition comment: stable Prescriptions/Referrals Prescriptions/Med Rec: New multivitamin [Daily Multi-Vitamin] Tablet 1 tab PO QDAY Qty: 30 0RF ibuprofen 600 mg tablet 600 mg PO Q8H PRN (Reason: back pain ) Qty: 14 0RF No Action omeprazole 40 mg Capsule,Delayed Release(Dr/Ec) 40 mg PO QDAY metformin 1,000 mg Tablet Extended Release 24 Hr 1,000 mg PO QDAY budesonide-formoterol [Symbicort] 160-4.5 mcg/actuation Hfa Aerosol Inhaler 1 puff INHALATION BID sodium chloride 1,000 mg tablet,soluble 1,000 mg PO QDAY Qty: 60 0RF multivitamin Tablet 1 tab PO QAM Qty: 30 0RF benzonatate 100 mg capsule 100 mg PO BID PRN (Reason: cough) Qty: 14 0RF Problem List Clinical Impression: Acute lumbar back pain, Anxiety, Tremor Patient/Caregiver Discharge Instructions Education Materials: Alcohol and Older Adults, Alcohol Addiction, Alcohol Withdrawal: What to Expect, ED Back Pain (Acute or Chronic) Additional Instructions: Take Tylenol or ibuprofen every 6 hours as needed for back pain. Continue to take outpatient antianxiety medication for anxiety and possible alcohol withdrawal. Continue to take daily multivitamin. Follow-up with primary care within the next 24 to 48 hours for reevaluation of possible alcohol withdrawal. 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 Clemons
[2024-12-12] MEDS: LORazepam 0.5 MG TABLET 1 MG PO (13:54)
[2024-12-12] MEDS: THIAMINE 100 MG TABLET PO (13:54)
[2024-12-12] MEDS: FOLIC ACID 1 MG TABLET PO (13:54)
== END 2024-12-12 15:05 | disposition home or self-care (01) ==
LOC: SERX 14:36
PROVIDERS: Emergency Provider Emergency Medicine; PCP Internal Medicine
DX: M51.360 Other intervertebral disc degeneration, lumbar region with discogenic back pain only (principal); F41.9 Anxiety disorder, unspecified; R25.1 Tremor, unspecified
CPT/HCPCS: 72100; 84425; 99282; A9270

== ENCOUNTER → 2025-05-05 | Outpatient (CLI) | payer MEDICARE, MEDICAID, SELFPAY ==
[2025-05-05 08:44] LABS: Basophils # (Auto) 0.1 Thou/mm3 (0.0-0.2); Basophils % (Auto) 1 % (0-2.5); Eosinophils # (Auto) 0.7 Thou/mm3 (0.0-0.5); Eosinophils % (Auto) 15 % (0-10); Hematocrit 34.2 % (41.0-53.0); Hemoglobin 11.0 g/dL (13.5-16.0); Immature Granulocytes Auto 0.01 Thou/mm3 (0.00-0.00); Lymphocytes # (Auto) 1.4 Thou/mm3 (1.0-4.8); Lymphocytes % (Auto) 30 % (10-50); Mean Corpuscular HGB Conc 32.2 g/dl (31.0-37.0); Mean Corpuscular Hemoglobin 24.7 pg (25.0-35.0); Mean Corpuscular Volume 77 fL (80-100); Monocytes # (Auto) 0.5 Thou/mm3 (0.0-0.8); Monocytes % (Auto) 12 % (0-12); Neutrophils # (Auto) 1.9 Thou/mm3 (1.8-7.7); Neutrophils % (Auto) 42 % (37-80); Nucleated Red Blood Cell # 0.00 Thou/mm3 (0.00-0.00); Nucleated Red Blood Cell % 0 /100 WBC (0); Platelet Count 282 Thou/mm3 (140-440); RDW Standard Deviation 44.5 fL (35.1-43.9); Red Blood Count 4.45 Miln/mm3 (4.50-5.90); White Blood Count 4.5 Thou/mm3 (3.8-10.6)
[2025-05-05 08:52] LABS: Glucose Estimated Average 146 mg/dL (80-131); Hemoglobin A1C 6.7 % Hgb (4.8-6.0)
[2025-05-05 09:00] LABS: Prostate Specific Antigen 0.90 ng/mL (0-4.00)
[2025-05-05 09:10] LABS: Alanine Aminotransferase 24 U/L (10-49); Albumin, Serum 4.5 gm/dL (3.4-4.8); Albumin/Globulin Ratio 1.8 (1.2-2.2); Alkaline Phosphatase 59 U/L (46-116); Anion Gap 11 (7-16); Aspartate Amino Transferase 44 U/L (0-34); BUN/Creatinine Ratio 9 Ratio (12-20); Bilirubin,Total 0.8 mg/dL (0.3-1.2); Blood Urea Nitrogen 7 mg/dL (9-23); Calcium 8.8 mg/dL (8.3-10.6); Calcium (Corrected) 8.8 mg/dL (8.5-10.1); Carbon Dioxide 25.7 mMol/L (20.0-31.0); Cardiac Risk Estimate 2.0 RATIO (4.0-6.7); Chloride 101 mMol/L (98-107); Cholesterol 156 mg/dL (132-200); Creatinine (Component) 0.8 mg/dL (0.6-1.3); Globulin 2.5 gm/dL (2.3-3.5); Glucose 109 mg/dL (74-106); HDL Cholesterol 77 mg/dL (40-60); LDL Cholesterol,Calculated 67 mg/dL (0-130); Osmolality,Calculated 274 (275-295); Potassium 4.4 mMol/L (3.4-5.1); Sodium 138 mMol/L (136-145); Thyroid Stimulating Hormone 0.19 uIU/mL (0.55-4.78); Total Protein 7.0 gm/dL (5.7-8.2); Triglycerides 60 mg/dL (30-150); eGFR > 60 See Note
[2025-05-05 09:41] LABS: Hepatitis A Antibody IgM Non Reactive (Non React); Hepatitis B Core Antibody IgM Non Reactive (Non React); Hepatitis B Surface Antigen Non Reactive (Non React); Hepatitis C Antibody Non Reactive (Non React)
== END | disposition home or self-care (01) ==
LOC: COPL 07:13
PROVIDERS: PCP Student in an Organized Health Care Education/Training Program; Referring Provider Student in an Organized Health Care Education/Training Program; Visit Provider Student in an Organized Health Care Education/Training Program
DX: Z00.00 Encounter for general adult medical examination without abnormal findings (principal); Z13.9 Encounter for screening, unspecified
CPT/HCPCS: 36415; 80053; 80061; 80074; 83036; 84153; 84443; 85025

== ENCOUNTER → 2025-06-05 | Outpatient (CLI) | payer MEDICARE, MEDICAID, SELFPAY ==
--- NOTE | 2025-06-05 11:00 | XR_ITS ---
EXAMINATION: Ultrasound abdominal aorta TECHNIQUE: Grayscale sonographic images abdominal aorta Date and time: June 05, 2025, 1127 hours INDICATIONS: Personal history nicotine dependence, smoking history years. FINDINGS: Transverse dimension proximal aorta 2.4 cm mid aorta 1.9 cm distal aorta 1.6 cm right iliac 1.0 cm left iliac 1.0 cm IMPRESSION: Negative for abdominal aortic aneurysm
--- NOTE | 2025-06-05 11:30 | XR_ITS ---
Examination: CT chest high resolution, without contrast. 2-D sagittal reconstructions. 2-D coronal reconstructions. 3-D reconstructions. Date and time of exam: June 05, 2025, 1244 hours INDICATIONS: Nicotine dependence, smoking history 15 years 17 mm pulmonary nodule right upper lobe containing calcification on CT chest June 15, 2004 CTDI: vol (mGy): 12.6 DLP: (mGycm): 456 Technique: Multiple 1.25 mm axial sections of the chest without intravenous contrast have been obtained. 2-D sagittal and coronal reconstructions have been obtained. 3-D reconstructions have been obtained. Low dose protocols were performed. One or more of the following dose reduction techniques were used; automated exposure control, adjustment of the mA and/or KV according to patient size, use of iterative reconstruction technique. Findings: No thoracic aortic aneurysmal dilatation Pulmonary artery segments are not enlarged Mild calcification left anterior descending coronary artery No mediastinal lymphadenopathy Abundant fat density surrounding the descending thoracic aorta 12 mm calcified granuloma right upper lobe Stable 6 mm pulmonary nodule right lower lobe No new pulmonary nodules No pneumonia or pulmonary edema IMPRESSION: Stable pulmonary nodules compared with June 15, 2004 No new pulmonary nodules
== END | disposition home or self-care (01) ==
PROVIDERS: PCP Nurse Practitioner Family; Referring Provider Student in an Organized Health Care Education/Training Program; Visit Provider Student in an Organized Health Care Education/Training Program
DX: Z13.6 Encounter for screening for cardiovascular disorders (principal); R91.8 Other nonspecific abnormal finding of lung field; Z87.891 Personal history of nicotine dependence
CPT/HCPCS: 71271; 76770

== ENCOUNTER 2025-06-17 07:15 | Emergency (ER) | payer MEDICARE, MEDICAID, SELFPAY ==
[2025-06-17 07:26] VITALS: BP 183/103; BP 187/102; PULSE 88; RESP 18; TEMP 36.6; O2SAT 95; BMI 36.5
--- NOTE | 2025-06-17 07:30 | EKG_ITS ---
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
--- NOTE | 2025-06-17 07:30 | XR_ITS ---
PA and lateral chest film on 06/17/2025 at 7:34 a.m. CLINICAL HISTORY: Right-sided chest pain radiating to the back for 3 days COMPARISON STUDY: 2024 FINDINGS: Again noted is a 1 cm densely calcified granuloma situated laterally in the right upper lobe. This is unchanged, probably relates to old remote tuberculosis. There is a rounded abnormal density overlying the right medial lung base, initially of uncertain etiology. 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 IMPRESSION: 1. 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 This is of no concern and it is a benign finding
--- NOTE | 2025-06-17 07:33 | PD.EDRME ---
Rapid Medical Screening Exam RME Arrival date/time: 06/17/25 07:15 75-year-old male with medical history significant for hypertension, alcohol abuse, methamphetamine abuse presents with concerns for elevated blood pressure and arm pain Chief Complaint: General Adult/Misc Complain Vital signs: Vital Signs Temperature 97.9 F 06/17/25 07:26 Pulse Rate 88 06/17/25 07:26 Respiratory Rate 18 06/17/25 07:26 Blood Pressure 183/103 H 06/17/25 07:26 Pulse Oximetry (%) 95 06/17/25 07:26 Oxygen Delivery Method Room Air 06/17/25 07:26 Vital signs reviewed by provider: Yes Exam: On exam patient well-appearing does not appear look toxic Patient is hypertensive Clinical Impression: Lab work, imaging, EKG obtained
[2025-06-17 08:22] LABS: Alcohol, Urine Negative (Negative); Amphetamine/Methamp Scrn,U Negative (Negative); Barbiturate Screen,Urine Negative (Negative); Benzodiazepines Screen,Urine Positive (Negative); Benzoylecgonine Screen, Ur Negative (Negative); Fentanyl Screen,Urine Negative (Negative); Opiate Screen,Urine Negative (Negative); THC Screen,Urine Negative (Negative)
[2025-06-17 08:44] LABS: Basophils # (Auto) 0.1 Thou/mm3 (0.0-0.2); Basophils % (Auto) 2 % (0-2.5); Eosinophils # (Auto) 0.5 Thou/mm3 (0.0-0.5); Eosinophils % (Auto) 10 % (0-10); Hematocrit 33.4 % (41.0-53.0); Hemoglobin 10.5 g/dL (13.5-16.0); Immature Granulocytes Auto 0.01 Thou/mm3 (0.00-0.00); Lymphocytes # (Auto) 1.1 Thou/mm3 (1.0-4.8); Lymphocytes % (Auto) 21 % (10-50); Mean Corpuscular HGB Conc 31.4 g/dl (31.0-37.0); Mean Corpuscular Hemoglobin 24.0 pg (25.0-35.0); Mean Corpuscular Volume 76 fL (80-100); Monocytes # (Auto) 0.7 Thou/mm3 (0.0-0.8); Monocytes % (Auto) 14 % (0-12); Neutrophils # (Auto) 2.8 Thou/mm3 (1.8-7.7); Neutrophils % (Auto) 54 % (37-80); Nucleated Red Blood Cell # 0.00 Thou/mm3 (0.00-0.00); Nucleated Red Blood Cell % 0 /100 WBC (0); Platelet Count 257 Thou/mm3 (140-440); RDW Standard Deviation 44.3 fL (35.1-43.9); Red Blood Count 4.38 Miln/mm3 (4.50-5.90); White Blood Count 5.2 Thou/mm3 (3.8-10.6)
[2025-06-17 09:00] LABS: INR 1.0 (0.9-1.3); Partial Thromboplastin Time 27.1 Seconds (22.0-36.0); Prothrombin Time 11.0 Seconds (9.0-12.2)
[2025-06-17 09:04] LABS: B-Type Natriuretic Peptide 28 pg/mL (0-100)
[2025-06-17 09:06] LABS: Alanine Aminotransferase 41 U/L (10-49); Albumin, Serum 3.9 gm/dL (3.4-4.8); Albumin/Globulin Ratio 1.3 (1.2-2.2); Alkaline Phosphatase 51 U/L (46-116); Anion Gap 6 (7-16); Aspartate Amino Transferase 42 U/L (0-34); BUN/Creatinine Ratio 18 Ratio (12-20); Bilirubin,Total 0.6 mg/dL (0.3-1.2); Blood Urea Nitrogen 16 mg/dL (9-23); Calcium 8.9 mg/dL (8.3-10.6); Calcium (Corrected) 9.0 mg/dL (8.5-10.1); Carbon Dioxide 28.8 mMol/L (20.0-31.0); Chloride 103 mMol/L (98-107); Creatinine (Component) 0.9 mg/dL (0.6-1.3); Estimated Creatinine Clearance 64.1 mL/min (>60); Globulin 3.0 gm/dL (2.3-3.5); Glucose 114 mg/dL (74-106); Magnesium 2.0 mg/dL (1.6-2.6); Osmolality,Calculated 277 (275-295); Potassium 4.3 mMol/L (3.4-5.1); Sodium 138 mMol/L (136-145); Total Protein 6.9 gm/dL (5.7-8.2); Troponin I < 0.020 ng/mL (0.0-0.045); eGFR > 60 See Note
[2025-06-17 09:16] VITALS: BP 141/83; PULSE 75
--- NOTE | 2025-06-17 10:55 | PD.EDADULT ---
ED General RME/HPI General Chief complaint: General Adult/Misc Complain Stated complaint: high blood pressure, right arm pain x 5hrs Time Seen by Provider: 06/17/25 08:22 Arrival date/time: 06/17/25 07:15 Limitations: no limitations RME / HPI RME / HPI narrative: 06/17/25 07:15 75-year-old male with medical history significant for hypertension, alcohol abuse, methamphetamine abuse presents with concerns for elevated blood pressure and arm pain DR. GALLARDO MAIN ED EVALUATION: 75 year old male with history of asthma, COPD, hypertension, diabetes, alcohol and methamphetamine use presents to the ED for evaluation of elevated blood pressure this morning. Accompanied by right arm pain beginning ~ 5 hours prior to arrival. Pain described as aching in sensation, rated 5/10 in severity. Denies any injury or trauma. No known modifying or aggravating factors. Exam: On exam patient well-appearing does not appear look toxic Patient is hypertensive Impression: Lab work, imaging, EKG obtained Related Data Home Medications ?Medication ?Instructions ?Recorded ?Confirmed metformin 1,000 mg tablet,extended 1,000 mg PO QDAY 07/27/22 07/22/24 release 24hr (osmotic) omeprazole 40 mg capsule,delayed 40 mg PO QDAY 07/27/22 07/22/24 release budesonide-formoterol HFA 160 1 puff inhalation BID 04/21/23 07/22/24 mcg-4.5 mcg/actuation aerosol inhaler (Symbicort) Previous Rx's ?Medication ?Instructions ?Recorded benzonatate 100 mg capsule 100 mg PO BID PRN cough #14 caps 07/25/24 multivitamin 1 tab PO QAM #30 tabs 07/25/24 sodium chloride 1,000 mg soluble 1,000 mg PO QDAY #60 tabs 07/25/24 tablet ibuprofen 600 mg tablet 600 mg PO Q8H PRN back pain #14 12/12/24 tabs multivitamin (Daily Multi-Vitamin 1 tab PO QDAY #30 tabs 12/12/24 tablet) Allergies Allergy/AdvReac Type Severity Reaction Status Date / Time No Known Allergies Allergy Verified 06/17/25 07:18 Review of Systems Review of Systems Systems Reviewed: All systems reviewed, normal except as documented Past Medical History Past Medical History CARDIAC: Positive Cardiac Disorders, Hypertension and Varicose Veins RESPIRATORY: Positive Respiratory Disorders, Asthma, Bronchitis and Pneumonia GASTROINTESTINAL: Positive Gastrointestinal Disorders, Gastroesophageal Reflux Disease and Obesity MUSCULOSKELETAL: Positive Musculoskeletal Disorders and Fractures (ribs) ENT: Positive Cataracts (Left eye) ENDOCRINE: Positive Endocrine Disorders and Diabetes Mellitus Type 2 PSYCHO/SOCIAL: Positive Depression and Anxiety OTHER HISTORY: Positive Hospitalization, Blood Transfusions, Chicken Pox, Measles and Mumps Family History FAMILY HISTORY: Positive Family Cardiac Disorders and Family Surgery Surgical History SURGICAL: Positive Abdominal Surgery Social History SMOKING STATUS: Former smoker ED Exam General Limitations: Present no limitations General appearance: Present alert and in no apparent distress Head Head exam: Present atraumatic, normocephalic and normal inspection Eye Eye exam: Present normal appearance, PERRL and EOMI ENT ENT exam: Present normal exam, normal oropharynx and mucous membranes moist Neck Neck exam: Present normal inspection, full ROM and trachea midline Chest Chest inspection: Present normal inspection and symmetric chest wall rise Respiratory Respiratory exam: Present normal lung sounds bilaterally Cardiovascular Cardiovascular exam: Present regular rate, normal rhythm and normal heart sounds Abdominal Exam Abdominal exam: Present soft and normal bowel sounds Extremities Exam Extremities exam: Present normal inspection, full ROM and other (FROM to all 4 extremities. ); Absent tenderness Back Exam Back exam: Present normal inspection and full ROM Neurological Exam Neurological exam: Present alert, oriented X3 and CN II-XII intact Psychiatric Psychiatric exam: Present normal affect and normal mood Skin Skin exam: Present warm, dry, intact and normal color Course Quality Measures none Orders Category Date Time Status EKG (ED ONLY) *Do not use* NOW Care 06/17/25 07:30 Completed Insert [Insert IV] NOW Care 06/17/25 08:25 Completed EKG (ED Only) Stat Exams 06/17/25 07:30 Draft XR chest 2V Stat Exams 06/17/25 07:30 Completed Alcohol, Urine Stat Lab 06/17/25 07:56 Completed B-Type Natriuretic Peptide Stat Lab 06/17/25 08:37 Completed CBC Stat Lab 06/17/25 07:56 Completed Comprehensive Metabolic Panel Stat Lab 06/17/25 08:37 Completed Drug Screen,Urine Stat Lab 06/17/25 07:56 Completed Magnesium Stat Lab 06/17/25 08:37 Completed Partial Thromboplastin Time Stat Lab 06/17/25 08:37 Completed Prothrombin Time with INR Stat Lab 06/17/25 08:37 Completed Troponin I Stat Lab 06/17/25 08:37 Completed hydrALAZINE INJ [Apresoline Inj] Med 06/17/25 08:23 Discontinued 5 mg IVP X1 ONE Vital Signs Vital signs: Vital Signs Temperature 97.9 F 06/17/25 07:26 Pulse Rate 88 06/17/25 07:26 Respiratory Rate 18 06/17/25 07:26 Blood Pressure 183/103 H 06/17/25 07:26 Pulse Oximetry (%) 95 06/17/25 07:26 Oxygen Delivery Method Room Air 06/17/25 07:26 Pulse ox is 95% on room air which is adequate. Discharge Plan Plan Patient Disposition: HOME (Self Care) Patient condition on transfer: Stable Prescriptions/Referrals Prescriptions/Med Rec: No Action omeprazole 40 mg Capsule,Delayed Release(Dr/Ec) 40 mg PO QDAY metformin 1,000 mg Tablet Extended Release 24 Hr 1,000 mg PO QDAY budesonide-formoterol [Symbicort] 160-4.5 mcg/actuation Hfa Aerosol Inhaler 1 puff INHALATION BID multivitamin [Daily Multi-Vitamin] Tablet 1 tab PO QDAY Qty: 30 0RF ibuprofen 600 mg tablet 600 mg PO Q8H PRN (Reason: back pain ) Qty: 14 0RF sodium chloride 1,000 mg tablet,soluble 1,000 mg PO QDAY Qty: 60 0RF multivitamin Tablet 1 tab PO QAM Qty: 30 0RF benzonatate 100 mg capsule 100 mg PO BID PRN (Reason: cough) Qty: 14 0RF Problem List Clinical Impression: Hypertension Patient/Caregiver Discharge Instructions Discharge Activity: activity as tolerated Education Materials: Controlling High Blood Pressure, Diabetes and Heart Disease, Blood Pressure Check Steps Additional Instructions: Continue your same medications. Follow-up with your doctor in 2 to 3 days for blood pressure check. Print Language: Belgian Stand Alone Forms: Macy Award Info., Patient Portal Info Letter MDM Narrative MDM hospital course (for use when minimal MDM required): Carmelina Portillo am scribing for and in the presence of Dr. Gallardo. 75 year old male with history of asthma, COPD, hypertension, diabetes, alcohol and methamphetamine use presents to the ED for evaluation of elevated blood pressure and right arm pain beginning this morning. Patients initial blood pressure was 187/103 and I ordered 5mg IV Hydralazine. However, repeat blood pressure improved to 141/83 and medication was not given. Labs were performed and remarkable for Hgb of 10.5 though is chronically low dating back to 2021. No leukocytosis. CMP with no acute findings. PT/PTT with no acute findings. UDS positive for benzodiazepines. Chest xray is negative for any active disease. In the ED, patient has remained stable. We reviewed all the results, analysis, and treatment plans. Patient is amenable to discharge. Strict return precautions were outlined. Clinical Information Provided by: patient Medical Records reviewed [facility] Meds/Rx considered, not ordered None Labs/Rad/Tests considered, not ordered None Chronic Illness/Social Conditions which may negatively complicate care or outcome(s)-explain: ETOH/drugs/substance abuse EKG Interpretation EKG #1: EKG Interpretation: EKG @ 07:37am, interpreted by pr, normal sinus rhythm, rate 84, no STEMI. Labs Labs: see narrative above Imaging Imaging Interpretation(s): Ordering Physician: Shaka ROJAS),Marquez LOPEZ Date of Service: 06/17/25 Procedure(s): XR chest 2V Accession Number(s): [id number] cc: Shaka (JESSICA),Marquez LOPEZ; Mathew Santacruz MD~ PA and lateral chest film on 06/17/2025 at 7:34 a.m. CLINICAL HISTORY: Right-sided chest pain radiating to the back for 3 days COMPARISON STUDY: 2024 FINDINGS: Again noted is a 1 cm densely calcified granuloma situated laterally in the right upper lobe. This is unchanged, probably relates to old remote tuberculosis. There is a rounded abnormal density overlying the right medial lung base, initially of uncertain etiology. 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 IMPRESSION: 1. 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 This is of no concern and it is a benign finding Dictated By: Mathew Santacruz MD Signed By: <Electronically signed by Mathew Santacruz MD in [place]> 06/17/25 0830 Medication Administration(s) Medication Administration History Discontinued Medications Hydralazine HCl (Hydralazine Inj 20 Mg/Ml Vial) 5 mg IVP X1 ONE Stop: 06/17/25 08:24 Last Admin: 06/17/25 09:16 Dose: Not Given Documented By: IGOR Non-Admin Reason: Cancelled by Provider No medications given in the ED. Diagnosis Diagnoses ruled out and/or further discussions: Hypertension
[2025-06-17 11:20] VITALS: BP 176/92; PULSE 70; RESP 16; TEMP 36.6; O2SAT 96
== END 2025-06-17 11:21 | disposition home or self-care (01) ==
LOC: SERX 10:55
PROVIDERS: Nurse Practitioner Primary Care; Emergency Provider Family Medicine; PCP Nurse Practitioner Family
DX: I10 Essential (primary) hypertension (principal); M79.601 Pain in right arm; E11.9 Type 2 diabetes mellitus without complications; J44.9 Chronic obstructive pulmonary disease, unspecified; D17.79 Benign lipomatous neoplasm of other sites
CPT/HCPCS: 36415; 71046; 80053; 80307; 80320; 83735; 83880; 84484; 85025; 85610; 85730; 93005; 99283; G0480